=== PATIENT | male | born 1995 | race Asian ===

== ENCOUNTER 2018-12-15 12:22 | Observation (INO) | payer MEDICAID, OTHER ==
[~2018-12-15] VITALS: Ht 170.2 cm; Wt 55.0 kg
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
--- NOTE | 2018-12-15 13:18 | NUR ---
DIET TRAY ORDERED.
[2018-12-15 13:19] LABS: BASOPHILS # (AUTO) 0.02 x10^3/uL (0-0.1); BASOPHILS % (AUTO) 0 % (0-1); EOSINOPHILS # (AUTO) 0.08 x10^3/uL (0-0.4); EOSINOPHILS % (AUTO) 1 % (1-7); LYMPHOCYTES # (AUTO) 2.24 x10^3/uL (1-3.4); LYMPHOCYTES % (AUTO) 33 % (22-44); MD NO; MEAN CORPUSCULAR HEMOGLOBIN 30.2 pg (27.5-34.5); MEAN CORPUSCULAR HGB CONC 34.5 g/dL (33.2-36.2); MEAN CORPUSCULAR VOLUME 87.6 fL (81-97); MEAN PLATELET VOLUME 7.7 fL (7.4-10.4); MONOCYTES # (AUTO) 0.52 x10^3/uL (0.2-0.8); MONOCYTES % (AUTO) 8 % (2-9); NEUTROPHILS # (AUTO) 3.87 x10^3/uL (1.8-6.8); NEUTROPHILS % (AUTO) 58 % (42-75); PLATELET COUNT 266 x10^3/uL (130-400); RED BLOOD COUNT 5.39 x10^6/uL (4.38-5.82); RED CELL DISTRIBUTION WIDTH 12.8 % (9.4-14.8)
[2018-12-15 13:27] LABS: ALANINE AMINOTRANSFERASE 18 U/L (12-78); ALBUMIN 4.6 g/dL (3.4-5.0); ANION GAP 6 mmol/L (5-15); CALCIUM 9.4 mg/dL (8.5-10.1); CHLORIDE 107 mmol/L (98-107); SALICYLATE LEVEL 2.6 mg/dL (2.8-20.0)
[2018-12-15 13:31] LABS: ALKALINE PHOSPHATASE 91 U/L (45-117); BILIRUBIN,TOTAL 0.8 mg/dL (0.2-1.0); CREATININE 1.17 mg/dL (0.7-1.3); TOTAL PROTEIN 7.9 g/dL (6.4-8.2)
--- NOTE | 2018-12-15 13:32 | NUR ---
PT MOTHER DUY DAVIDSON [phone]
[2018-12-15 13:38] LABS: ACETAMINOPHEN < 2 mcg/mL (10-30)
[2018-12-15] MEDS ORDERED: HALOPERIDOL 5 MG/ML ONE (13:54)
--- NOTE | 2018-12-15 13:57 | NUR ---
PT AGREED TO HALDOL 5MG IM. PT GIVEN HALDOL 5MG IM PER MD ORDER
--- NOTE | 2018-12-15 14:08 | NUR ---
PT GIVEN SUICIDAL DIET TRAY.
[2018-12-15] MEDS ORDERED: HALOPERIDOL 5 MG/ML IM PRN (14:40)
--- NOTE | 2018-12-15 15:13 | NUR ---
PT SLEEPING AT THIS TIME.
[2018-12-15] MEDS ORDERED: HALOPERIDOL 2 MG/ML ORAL SOL PO SCH (16:00)
--- NOTE | 2018-12-15 16:08 | NUR ---
PT SLEEPING AT THIS TIME. ROOM SECURED AND SITTER OUTSIDE ROOM
--- NOTE | 2018-12-15 16:31 | NUR ---
admitting hospitalist at bedside. pt then woke up and screamed at hospitalist. pt refusing to talk to hospitalist.
[2018-12-15] MEDS ORDERED: LORazepam INTENSOL 2 MG/ML PO PRN (17:00)
[2018-12-15] MEDS ORDERED: POLYETHYLENE GLYCOL 17 GM PACKET PO PRN (17:00)
[2018-12-15] MEDS ORDERED: HALOPERIDOL 2 MG/ML ORAL SOL PO PRN (17:00)
[2018-12-15 17:23] LABS: FREE T4 (FREE THYROXINE) 1.51 ng/dL (0.76-1.46); THYROID STIMULATING HORMONE 1.09 mIU/L (0.358-3.740)
--- NOTE | 2018-12-15 18:12 | NUR ---
PT IN BED AND SLEEPING AT THIS TIME. MEAL TRAY AT BEDSIDE
--- NOTE | 2018-12-15 19:05 | NUR ---
REPORT GIVEN TO JOSE OLMEDO. PT STILL SLEEPING SITTER OUTSIDE ROOM
--- NOTE | 2018-12-15 19:41 | NUR ---
LATE ENTRY 0- PT RESTING ON RAFAEL HERNANDEZ, EQUAL CHEST RISE/FALL OBSERVED, ROOM SECURED, GARAGE DOORS DOWN, SITTER AT DOORWAY FOR CONTINOUS MONITORING.
--- NOTE | 2018-12-15 20:14 | NUR ---
PT RESTING CALMLY WITH EYES CLOSED, NAD, EQUAL CHEST RISE/FALL OBSERVED,REPOSITIONED SELF ON GURNEY, SITTER AT DOORWAY FOR CONTINOUS MONITORING.
--- NOTE | 2018-12-15 21:09 | NUR ---
PT RESTING CALMLY WITH EYES CLOSED, NAD, EQUAL CHEST RISE/FALLOBSERVED, SITTER AT DOORWAY FOR CONTINOUS MONITORING.
--- NOTE | 2018-12-15 21:47 | NUR ---
PT RESTING ON GURNEY, PT AGREED TO LET ME TAKE HIS VS, STATED HE IS NOT ABLE TO PROVIDED URINE SAMPLE AT THIS TIME, REQUESTING SOMETHING TO EAT.
--- NOTE | 2018-12-15 22:24 | NUR ---
PT REFUSED SNACK AT THIS TIME, STATED HE WILL WAIT FOR SANDWICH WHEN COFFEE CART REOPENS. PT RESTING CALMLY, DISCUSSED NEED FOR URINE SAMPLE, PT STATED " I DON'T HAVE TO GO YET". SITTER AT DOOORWAY FOR CONTINOUS MONITORING.
--- NOTE | 2018-12-15 23:36 | NUR ---
PT RESTING CALMLY WITH EYES CLOSED, NAD, EQUAL CHEST RISE/FALLOBSERVED, SITTER AT DOORWAY FOR CONTINOUS MONITORING.
--- NOTE | 2018-12-16 00:06 | NUR ---
PT RESTING CALMLY WITH EYES CLOSED, NAD, EQUAL CHEST RISE/FALL OBSERVED, SITTER AT DOORWAY FOR CONTINOUS MONITORING.
--- NOTE | 2018-12-16 01:09 | NUR ---
PROVIDED PT WITH SANDWICH AND DRINK, SI PRECAUTIONS MAINTAINED Addendum: 12/16/18 at 0109 by NASIR EMMANUEL REMAINS AT DOORWAY FOR MONITORING.
--- NOTE | 2018-12-16 01:29 | NUR ---
JUANITO RN: PT RESTING IN ROOM. REGULAR RESP. NO ACUTE DISTRESS NOTED. SITTER AT DOOR. WILL CONITNUE TO MONITOR.
--- NOTE | 2018-12-16 02:15 | NUR ---
PT RESTING CALMLY WITH EYES CLOSED, NAD, EQUAL CHEST RISE/FALL OBSERVED, SITTER AT DOORWAY FOR CONTINOUS MONITORING.
[2018-12-16 02:22] LABS: AMPHETAMINE SCREEN, URINE Positive (Negative); BARBITURATE SCREEN, URINE Negative (Negative); BENZODIAZEPINE SCREEN, URINE Negative (Negative); CANNABINOID SCREEN, URINE Positive (Negative); COCAINE SCREEN, URINE Negative (Negative); METHADONE SCREEN, URINE Negative (Negative); OPIATE SCREEN, URINE Negative (Negative)
--- NOTE | 2018-12-16 03:05 | NUR ---
PT RESTING CALMLY WITH EYES CLOSED, NAD, EQUAL CHEST RISE/FALL OBSERVED,REPOSITIONED SELF ON GURNEY, SITTER AT DOORWAY FOR CONTINOUS MONITORING.
--- NOTE | 2018-12-16 03:28 | NUR ---
LIO RN: PT IS SELF PAY. PACKET FAXED TO [facility]
--- NOTE | 2018-12-16 04:26 | NUR ---
PT RESTING CALMLY WITH EYES CLOSED, NAD, EQUAL CHEST RISE/FALL OBSERVED, SITTER AT DOORWAY FOR CONTINOUS MONITORING.
--- NOTE | 2018-12-16 05:09 | NUR ---
PT RESTING CALMLY WITH EYES CLOSED, NAD, EQUAL CHEST RISE/FALL OBSERVED, SITTER AT DOORWAY FOR CONTINOUS MONITORING.
[2018-12-16 05:36] LABS: BASOPHILS # (AUTO) 0.03 x10^3/uL (0-0.1); BASOPHILS % (AUTO) 1 % (0-1); EOSINOPHILS # (AUTO) 0.09 x10^3/uL (0-0.4); EOSINOPHILS % (AUTO) 2 % (1-7); LYMPHOCYTES # (AUTO) 2.13 x10^3/uL (1-3.4); LYMPHOCYTES % (AUTO) 41 % (22-44); MD NO; MEAN CORPUSCULAR HGB CONC 34.1 g/dL (33.2-36.2); MEAN CORPUSCULAR VOLUME 87.9 fL (81-97); MONOCYTES # (AUTO) 0.52 x10^3/uL (0.2-0.8); MONOCYTES % (AUTO) 10 % (2-9); NEUTROPHILS # (AUTO) 2.48 x10^3/uL (1.8-6.8); NEUTROPHILS % (AUTO) 47 % (42-75); PLATELET COUNT 249 x10^3/uL (130-400); RED BLOOD COUNT 5.35 x10^6/uL (4.38-5.82); RED CELL DISTRIBUTION WIDTH 12.5 % (9.4-14.8)
[2018-12-16 05:46] LABS: ANION GAP 5 mmol/L (5-15); CALCIUM 9.1 mg/dL (8.5-10.1); CHLORIDE 111 mmol/L (98-107); CREATININE 1.08 mg/dL (0.7-1.3)
--- NOTE | 2018-12-16 06:02 | NUR ---
PT RESTING CALMLY, DENIES NEEDS, ROOM REMAINS SECURED, SITTER AT DOORWAY FOR CONTINOUS MONITORING.
--- NOTE | 2018-12-16 07:04 | NUR ---
REPORT GIVEN TO HONORIO CRAIG
--- NOTE | 2018-12-16 07:39 | NUR ---
BEDSIDE REPORT FROM JOSE OLMEDO, PT SLEEPING IN [facility] WITH SITTER AT BEDSIDE. PAPERWORK FAXED TO [facility] THIS AM, AWAITING PLACEMENT.
--- NOTE | 2018-12-16 08:07 | NUR ---
NEIL OLMEDO FROM [facility] HERE FOR PT EVAL, STATES THEY WILL ACCEPT PT ON 2N IF HOSPITALIST AGREES
[2018-12-16] MEDS: SENNA/DOCUSATE TABLET PO SCH (09:00)
[2018-12-16 09:55] VITALS: BP 93/58
[2018-12-16 21:55] VITALS: BP 134/100
[2018-12-16] MEDS ORDERED: HALOPERIDOL 5 MG TABLET PO SCH (22:00)
[2018-12-16] MEDS: HALOPERIDOL 5 MG TABLET PO PRN (22:11)
[2018-12-16] MEDS ORDERED: LORazepam 0.5MG TABLET PO PRN (22:30)
[2018-12-17] MEDS: HALOPERIDOL 5 MG TABLET PO PRN (05:05)
[2018-12-17 07:50] VITALS: BP 110/76
[2018-12-17] MEDS: SENNA/DOCUSATE TABLET PO SCH (09:00)
[2018-12-17] MEDS: PALIPERIDONE 3 MG TAB.ER.24 PO SCH (12:39)
[2018-12-17 21:14] VITALS: BP_SYST 120; BP_SYST 98; BP_DIAS 64; BP_DIAS 72
[2018-12-18 08:00] VITALS: BP 115/71
[2018-12-18] MEDS: PALIPERIDONE 3 MG TAB.ER.24 PO SCH (08:16)
[2018-12-18] MEDS: SENNA/DOCUSATE TABLET PO SCH ×2 (08:16→08:19)
[2018-12-18 20:00] VITALS: BP 115/70
[2018-12-19] MEDS: HALOPERIDOL 5 MG TABLET PO PRN (02:17)
[2018-12-19 08:00] VITALS: BP 114/68
[2018-12-19] MEDS: PALIPERIDONE 3 MG TAB.ER.24 PO SCH (08:16)
[2018-12-19] MEDS: SENNA/DOCUSATE TABLET PO SCH (08:16)
[2018-12-19 20:42] VITALS: BP 110/71
[2018-12-20] MEDS: LORazepam 0.5MG TABLET PO PRN ×2 (04:01→23:08)
[2018-12-20 07:10] VITALS: BP 116/69
[2018-12-20] MEDS: PALIPERIDONE 3 MG TAB.ER.24 PO SCH (08:03)
[2018-12-20] MEDS: SENNA/DOCUSATE TABLET PO SCH (08:03)
[2018-12-20 21:57] VITALS: BP 114/70
[2018-12-21 07:43] VITALS: BP 121/78
[2018-12-21] MEDS: SENNA/DOCUSATE TABLET PO SCH (09:12)
[2018-12-21] MEDS: PALIPERIDONE 3 MG TAB.ER.24 PO SCH (09:12)
[2018-12-21] MEDS ORDERED: PALI3TAB11 PO (14:10)
== END 2018-12-21 14:38 ==
LOC: ED 13:34 → EDIP 15:53 → 2N 12-16 09:45
PROVIDERS: ADMIT Internal Medicine; ATTEND Internal Medicine
DX: F23 Brief psychotic disorder (principal); F15.10 Other stimulant abuse, uncomplicated; R45.851 Suicidal ideations; F41.9 Anxiety disorder, unspecified; F32.9 Major depressive disorder, single episode, unspecified; E66.9 Obesity, unspecified; Z91.19 Patient's noncompliance with other medical treatment and regimen
CPT/HCPCS: 36415; 80048; 80053; 80307; 80329; 84439; 84443; 85025; 93005; 96372; 99284; G0378; J1630; G0480

== ENCOUNTER 2019-04-18 15:55 | Emergency (ER) | payer MEDICAID ==
[~2019-04-18] VITALS: Ht 170.2 cm; Wt 59.1 kg
[~2019-04-18 15:55] MED LIST: PALI3TAB11 PO
[2019-04-18] MEDS ORDERED: HYDROcodone/APAP 5/325 TABLET PO ONE (16:30)
[2019-04-18] MEDS ORDERED: HYDROcodone/APAP 5/325 TABLET ONE (16:41)
--- NOTE | 2019-04-18 17:02 | NUR ---
pt resting in gurney with whh sitter at bedside, equal chest rise and fall. no needs at this time
[2019-04-18 17:06] VITALS: BP 142/98
--- NOTE | 2019-04-18 18:19 | NUR ---
Patient/Caregiver given discharge instructions and they have confirmed that they understand the instructions. Patient ambulatory with steady gait. Pt D/C with [facility] employee back to [facility] via taxi.
== END 2019-04-18 18:21 ==
LOC: ED 17:41
DX: S06.0X9A Concussion with loss of consciousness of unspecified duration, initial encounter (principal); S00.93XA Contusion of unspecified part of head, initial encounter; F17.200 Nicotine dependence, unspecified, uncomplicated; X58.XXXA Exposure to other specified factors, initial encounter; Y93.89 Activity, other specified; Y92.89 Other specified places as the place of occurrence of the external cause; Y99.8 Other external cause status
CPT/HCPCS: 70450; 99285

== ENCOUNTER 2019-06-28 04:55 | Emergency (ER) | payer OTHER, MEDICAID ==
[~2019-06-28] VITALS: Ht 172.7 cm; Wt 57.4 kg
[2019-06-28 05:00] VITALS: BP 113/82
[2019-06-28] MEDS ORDERED: HALOPERIDOL 5 MG TABLET ONE (05:26)
[2019-06-28] MEDS ORDERED: HALOPERIDOL 5 MG TABLET PO ONE (05:30)
--- NOTE | 2019-06-28 06:53 | NUR ---
RECEIVED REPORT FROM OSCAR OLMEDO, PLAN OF CARE DISCUSSED. ORDERED BREAKFAST. PT SLEEPING RESP EVEN AND UNLABORED
--- NOTE | 2019-06-28 07:48 | NUR ---
WOKE PT UP AND AMBULATED IN ROOM AND INTO HALLWAY. PT AMBULATED WITHOUT ASSISTANCE AND STEADY GAIT.
--- NOTE | 2019-06-28 08:27 | NUR ---
PT ATE 100% BREAKFAST Patient given discharge instructions and they have confirmed that they understand the instructions. Patient ambulatory with steady gait.
== END 2019-06-28 08:30 | disposition home or self-care (01) ==
LOC: ED 05:15
DX: F20.0 Paranoid schizophrenia (principal); F15.10 Other stimulant abuse, uncomplicated; Z72.9 Problem related to lifestyle, unspecified
CPT/HCPCS: 36415; 80047; 99284

== ENCOUNTER 2019-08-21 12:12 | Emergency (ER) | payer BC, MEDICAID ==
[~2019-08-21] VITALS: Ht 167.6 cm; Wt 54.5 kg
[2019-08-21 12:28] VITALS: BP 123/79
--- NOTE | 2019-08-21 13:16 | NUR ---
PT TO ED STATING "I'M REALLY DEPRESSED, I HEAR VOICES AND THEY TELL ME BAD THINGS LIKE I'M NOT GOING TO BE HERE ANYMORE, I CAN'T DO ANYTHING OR THINK, I NEED HELP". PT STATES HE DOES NOT HAVE ANY SI/HI AT THIS TIME HOWEVER HAS IN THE PAST AND THE VOICES ARE TELLING HIM HE IS GOING TO . PT STATES LAST METH USE YESTERDAY. HX PARANOID SCHIZOPHRENIA.
--- NOTE | 2019-08-21 13:27 | NUR ---
PT REQUESTING TO LEAVE. MD NOTIFIED. PER PT IS NOT ON LEGAL HOLD IS DENYING ANY THOUGHT OF SI/HI CURRENTLY. MD OFFERED PT MEDICATIONS BUT PT DECLINING AT THIS TIME. OK TO LEAVE PER .
== END 2019-08-21 13:34 | disposition other institution (70) ==
LOC: ED 13:05
DX: F32.9 Major depressive disorder, single episode, unspecified (principal); F20.9 Schizophrenia, unspecified
CPT/HCPCS: 99284

== ENCOUNTER 2020-01-05 15:27 | Emergency (ER) | payer BC, MEDICAID ==
[~2020-01-05] VITALS: Ht 172.7 cm; Wt 63.3 kg
[2020-01-05 15:36] VITALS: BP 128/88
[2020-01-05 16:38] LABS: BASOPHILS # (AUTO) 0.04 x10^3/uL (0-0.1); BASOPHILS % (AUTO) 0 % (0-1); EOSINOPHILS # (AUTO) 0.11 x10^3/uL (0-0.4); EOSINOPHILS % (AUTO) 1 % (1-7); LYMPHOCYTES # (AUTO) 2.01 x10^3/uL (1-3.4); LYMPHOCYTES % (AUTO) 22 % (22-44); MD NO; MEAN CORPUSCULAR HEMOGLOBIN 28.7 pg (27.5-34.5); MEAN CORPUSCULAR HGB CONC 32.9 g/dL (33.2-36.2); MEAN PLATELET VOLUME 7.6 fL (7.4-10.4); MONOCYTES # (AUTO) 0.67 x10^3/uL (0.2-0.8); MONOCYTES % (AUTO) 7 % (2-9); NEUTROPHILS % (AUTO) 69 % (42-75); PLATELET COUNT 299 x10^3/uL (130-400); RED BLOOD COUNT 5.38 x10^6/uL (4.38-5.82); RED CELL DISTRIBUTION WIDTH 12.9 % (9.4-14.8)
--- NOTE | 2020-01-05 16:45 | NUR ---
URINE SAMPLE WALKED TO LAB
[2020-01-05 16:50] LABS: ALBUMIN 3.6 g/dL (3.4-5.0); ANION GAP 5 mmol/L (5-15); CHLORIDE 111 mmol/L (98-107)
[2020-01-05 16:52] LABS: SALICYLATE LEVEL < 1.7 mg/dL (2.8-20.0)
[2020-01-05 16:55] LABS: CREATININE 0.99 mg/dL (0.7-1.3)
--- NOTE | 2020-01-05 17:05 | NUR ---
HOTEL GENERAL MANAGER PAGED
[2020-01-05 18:03] LABS: AMPHETAMINE SCREEN, URINE Negative (Negative); BARBITURATE SCREEN, URINE Negative (Negative); BENZODIAZEPINE SCREEN, URINE Negative (Negative); CANNABINOID SCREEN, URINE Positive (Negative); COCAINE SCREEN, URINE Negative (Negative); METHADONE SCREEN, URINE Negative (Negative); OPIATE SCREEN, URINE Negative (Negative)
--- NOTE | 2020-01-05 18:24 | NUR ---
GOLD CROSS AT BEDSIDE
== END 2020-01-05 19:28 | disposition home or self-care (01) ==
LOC: ED 19:20
DX: F32.9 Major depressive disorder, single episode, unspecified (principal); R45.851 Suicidal ideations
CPT/HCPCS: 36415; 80048; 80307; 82040; 85025; 99283; 99284

== ENCOUNTER 2020-01-18 19:20 | Emergency (ER) | payer BC, MEDICAID ==
[~2020-01-18] VITALS: Ht 172.7 cm; Wt 62.6 kg
[2020-01-18 20:25] LABS: BASOPHILS # (AUTO) 0.01 x10^3/uL (0-0.1); BASOPHILS % (AUTO) 0 % (0-1); EOSINOPHILS # (AUTO) 0.15 x10^3/uL (0-0.4); EOSINOPHILS % (AUTO) 2 % (1-7); LYMPHOCYTES # (AUTO) 3.19 x10^3/uL (1-3.4); LYMPHOCYTES % (AUTO) 40 % (22-44); MD NO; MEAN CORPUSCULAR HEMOGLOBIN 28.1 pg (27.5-34.5); MEAN CORPUSCULAR HGB CONC 32.7 g/dL (33.2-36.2); MEAN CORPUSCULAR VOLUME 85.9 fL (81-97); MEAN PLATELET VOLUME 7.8 fL (7.4-10.4); MONOCYTES # (AUTO) 0.52 x10^3/uL (0.2-0.8); MONOCYTES % (AUTO) 7 % (2-9); NEUTROPHILS # (AUTO) 4.05 x10^3/uL (1.8-6.8); NEUTROPHILS % (AUTO) 51 % (42-75); PLATELET COUNT 310 x10^3/uL (130-400); RED BLOOD COUNT 5.68 x10^6/uL (4.38-5.82); RED CELL DISTRIBUTION WIDTH 13.1 % (9.4-14.8)
--- NOTE | 2020-01-18 20:29 | NUR ---
Patient into room, reports having suicidal ideation, patient reports general plan of jumping off bridge but does not name specific places. Patient reports 10/10 back pain but falls asleep with ease. Patient is easily arousable, not intoxicated on alcohol per breathalyzer. Patient exhibiting no signs or symptoms of physical or psychological distress, patient is now sleeping comfortably, only asks for food. Emotionally stable, no tears, no anxious verbalizations.
[2020-01-18 20:31] LABS: ALANINE AMINOTRANSFERASE 26 U/L (12-78); ALBUMIN 4.1 g/dL (3.4-5.0); ANION GAP 4 mmol/L (5-15); CALCIUM 9.3 mg/dL (8.5-10.1); CHLORIDE 107 mmol/L (98-107); CREATININE 1.01 mg/dL (0.7-1.3); SALICYLATE LEVEL < 1.7 mg/dL (2.8-20.0)
--- NOTE | 2020-01-18 20:40 | NUR ---
Patient continues to sleep and no signs or symptoms of psychological distress.
--- NOTE | 2020-01-18 20:40 | NUR ---
Single bag, with jacket (with uncategorized belongings in pockets) pants, shirt in locker.
[2020-01-18 20:42] LABS: ALKALINE PHOSPHATASE 118 U/L (45-117); BILIRUBIN,TOTAL 0.3 mg/dL (0.2-1.0); TOTAL PROTEIN 8.2 g/dL (6.4-8.2)
--- NOTE | 2020-01-18 22:23 | NUR ---
Patient remains sleeping.
--- NOTE | 2020-01-19 00:20 | NUR ---
PT REMAINS SLEEPING. NAD. SITTER IN PLACE.
--- NOTE | 2020-01-19 00:58 | NUR ---
Patient remains sleeping, RN awoke patient, easily arousable. Ignores RN's request for urine sample. Patient declines further needs.
--- NOTE | 2020-01-19 03:09 | NUR ---
Patient remains sleeping, no signs or symptoms of distress. Sitter in hallway able to visualize patient. Awaiting psychiatric assessment.
--- NOTE | 2020-01-19 07:05 | NUR ---
Bedside report received from Mendoza OLMEDO, pt care transferred at this time.
--- NOTE | 2020-01-19 07:28 | NUR ---
Pt resting in gurney, eyes closed, even and unlabored breathing, NAD. Sitter in [place] monitoring. WCTM.
[2020-01-19 07:56] VITALS: BP 116/71
--- NOTE | 2020-01-19 08:14 | NUR ---
Late Entry: pt given SI breakfast tray, [facility] in [facility], NAD, denies additional needs at this time. WCTM. Pt given additional warm blanket and pillow for comfort.
[2020-01-19 08:31] LABS: MICROSCOPIC NOT IND
[2020-01-19 08:39] LABS: CULTURE INDICATED? NO
[2020-01-19 08:43] LABS: AMPHETAMINE SCREEN, URINE Positive (Negative); BARBITURATE SCREEN, URINE Negative (Negative); BENZODIAZEPINE SCREEN, URINE Negative (Negative); CANNABINOID SCREEN, URINE Positive (Negative); COCAINE SCREEN, URINE Negative (Negative); METHADONE SCREEN, URINE Negative (Negative); OPIATE SCREEN, URINE Negative (Negative)
--- NOTE | 2020-01-19 09:25 | NUR ---
LATE ENTRY: Pt resting in gurney, NAD, denies additional needs at this time, even and unlabored respirations, WCTM.
--- NOTE | 2020-01-19 09:48 | NUR ---
Don figueredo in [facility] - 01/19/20 at 0948 by LEXIE LATE ENTRY: Pt resting in [facility], denies additional needs at this time, even and unlabored respirations, WCTM.
--- NOTE | 2020-01-19 10:19 | NUR ---
pt resting on gurney, eyes closed, even and unlabored respirations, NAD, WCTM. Sitter outside in [place].
--- NOTE | 2020-01-19 11:20 | NUR ---
Late Entry: Pt laying in gurney with blankets, NAD, even and unlabored respirations, WCTM.
--- NOTE | 2020-01-19 12:24 | NUR ---
Pt resting in gurney on side, eyes closed, even and unlabored respirations, NAD, WCTM.
--- NOTE | 2020-01-19 13:08 | NUR ---
Pt in [facility], given lunch meal tray, NAD, denies additional needs, WCTM.
--- NOTE | 2020-01-19 14:32 | NUR ---
Pt being transferred up to U, by marixa and RN. Pt NAD, denies additional needs, even and unlabored respirations.
[2020-01-19] MEDS ORDERED: MIRT15TA94 PO (16:28)
[2020-01-19] MEDS ORDERED: ALPR0.5T6 PO (16:28)
[2020-01-19] MEDS ORDERED: MIRT-34 PO (16:30)
[2020-01-19] MEDS ORDERED: OLAN10TA9 PO (16:32)
[2020-01-19] MEDS ORDERED: HYDR50CA PO (16:34)
[2020-01-19] MEDS ORDERED: QUET100T PO (16:34)
== END 2020-01-19 14:51 | disposition other institution (70) ==
LOC: ED 22:32
DX: R45.851 Suicidal ideations (principal); F33.9 Major depressive disorder, recurrent, unspecified; F20.9 Schizophrenia, unspecified; F17.200 Nicotine dependence, unspecified, uncomplicated
CPT/HCPCS: 36415; 80053; 80307; 81003; 84443; 85025; 99284

== ENCOUNTER 2020-01-19 14:19 | Inpatient (IN) | payer BC, MEDICAID ==
[~2020-01-19] VITALS: Ht 172.7 cm; Wt 60.3 kg
[2020-01-19] MEDS ORDERED: PLEASE ENTER HEIGHT AND WEIGHT MC SCH (15:00)
[2020-01-19] MEDS ORDERED: POLYETHYLENE GLYCOL 17 GM PACKET PO PRN (15:00)
[2020-01-19] MEDS ORDERED: DOCUSATE 100 MG CAPSULE PO PRN (15:00)
[2020-01-19] MEDS ORDERED: BISACODYL 10 MG SUPP PR PRN (15:00)
[2020-01-19 15:47] VITALS: BP 112/75
[2020-01-19] MEDS ORDERED: ONDANSETRON ODT 4 MG PO PRN (16:00)
[2020-01-19] MEDS ORDERED: ACETAMINOPHEN 325 MG TABLET PO PRN (16:00)
[2020-01-19] MEDS ORDERED: ALPR0.5T6 PO (16:28)
[2020-01-19] MEDS ORDERED: MIRT15TA94 PO (16:28)
[2020-01-19] MEDS ORDERED: MIRT-34 PO (16:30)
[2020-01-19] MEDS ORDERED: OLAN10TA9 PO (16:32)
[2020-01-19] MEDS ORDERED: HYDR50CA PO (16:34)
[2020-01-19] MEDS ORDERED: QUET100T PO (16:34)
[2020-01-19] MEDS ORDERED: hydrOXyzine 50MG TABLET PO PRN (17:00)
[2020-01-19] MEDS: NICOTINE 14MG/24 HR PATCH.TD24 TD SCH (17:21)
[2020-01-19] MEDS ORDERED: HALOPERIDOL 5 MG TABLET ONE (18:46)
[2020-01-19] MEDS ORDERED: LORazepam 1MG TABLET ONE (18:47)
[2020-01-19] MEDS ORDERED: HALOPERIDOL 5 MG TABLET PO ONE (19:00)
[2020-01-19] MEDS ORDERED: LORazepam 1MG TABLET PO ONE (19:00)
[2020-01-19 20:00] VITALS: BP 127/83
[2020-01-19] MEDS: OLANZAPINE 5 MG TABLET PO SCH (20:03)
[2020-01-20 07:20] VITALS: BP 92/59
[2020-01-20] MEDS: OLANZAPINE 5 MG TABLET PO SCH ×2 (08:31→20:16)
[2020-01-20 09:37] LABS: CHOL/HDL RATIO 2.9; FREE T4 (FREE THYROXINE) 0.98 ng/dL (0.76-1.46); LDL/HDL RATIO 1.6 (0.5-3.0)
[2020-01-20] MEDS: NICOTINE 14MG/24 HR PATCH.TD24 TD SCH (17:14)
[2020-01-20 19:15] VITALS: BP 107/66
[2020-01-21 06:14] VITALS: BP 126/78
[2020-01-21] MEDS: NICOTINE 14MG/24 HR PATCH.TD24 TD SCH (17:30)
[2020-01-21 19:52] VITALS: BP 136/95
[2020-01-21] MEDS: OLANZAPINE 5 MG TABLET PO SCH (20:01)
[2020-01-22 07:23] VITALS: BP 98/65
[2020-01-22] MEDS: NICOTINE 14MG/24 HR PATCH.TD24 TD SCH (16:34)
[2020-01-22 19:15] VITALS: BP 122/81
[2020-01-22] MEDS: OLANZAPINE 5 MG TABLET PO SCH (19:58)
[2020-01-23 07:28] VITALS: BP 106/64
[2020-01-23] MEDS: NICOTINE 14MG/24 HR PATCH.TD24 TD SCH (16:35)
[2020-01-23] MEDS ORDERED: NICOTINE GUM 2 MG BC ONE (16:42)
[2020-01-23] MEDS ORDERED: NICOTINE GUM 2 MG BC PRN (17:00)
[2020-01-23 19:19] VITALS: BP 131/85
[2020-01-23] MEDS ORDERED: LORazepam 2 MG/ML, 1ML ONE (19:44)
[2020-01-23] MEDS ORDERED: HALOPERIDOL 5 MG/ML ONE (19:44)
[2020-01-23] MEDS ORDERED: HALOPERIDOL 5 MG/ML IM PRN (20:00)
[2020-01-23] MEDS ORDERED: LORazepam 2 MG/ML, 1ML IM PRN (20:00)
[2020-01-23] MEDS: OLANZAPINE 5 MG TABLET PO SCH (20:01)
[2020-01-24 07:00] VITALS: BP 115/72
[2020-01-24] MEDS ORDERED: ALPR0.5T6 PO (13:59)
[2020-01-24] MEDS ORDERED: OLAN5TAB9 PO (13:59)
== END 2020-01-24 14:12 | disposition home or self-care (01) | DRG 885 ==
LOC: UNDOADMIN 14:38 → 3E 14:38 → 2N 14:52 → UNDOADMIN 01-23 21:50 → UNDODISIN 01-24 14:12
PROVIDERS: ADMIT Psychiatry & Neurology Psychosomatic Medicine; ATTEND Psychiatry & Neurology Psychosomatic Medicine
DX: F20.9 Schizophrenia, unspecified (principal); R45.851 Suicidal ideations; F15.20 Other stimulant dependence, uncomplicated; F12.10 Cannabis abuse, uncomplicated; F17.200 Nicotine dependence, unspecified, uncomplicated; F41.1 Generalized anxiety disorder
CPT/HCPCS: 36415; 71045; 80061; 84439; 84443; 93005; J1630; J2060

== ENCOUNTER 2020-01-29 10:25 | Emergency (ER) | payer BC, MEDICAID ==
[~2020-01-29] VITALS: Ht 175.3 cm; Wt 70.0 kg
[~2020-01-29 10:25] MED LIST changes: +ALPR0.5T6 PO; +HYDR50CA PO; +MIRT-34 PO; +MIRT15TA94 PO; +OLAN10TA9 PO; +OLAN5TAB9 PO; +QUET100T PO
--- NOTE | 2020-01-29 10:31 | NUR ---
PT BIB EMS FOR POSSIBLE OD ON XANAX. XANAX BOTTLE EMPTY. FILLED YESTERDAY 60 PILLS, BOTTLE EMPTY. PT IS NOT COOPERATIVE, SLURRED SPEECH, DROWSY. PT REQUESTING FOOD. MD AT BEDSIDE.
[2020-01-29 10:55] LABS: BASOPHILS # (AUTO) 0.02 x10^3/uL (0-0.1); BASOPHILS % (AUTO) 0 % (0-1); EOSINOPHILS # (AUTO) 0.12 x10^3/uL (0-0.4); EOSINOPHILS % (AUTO) 2 % (1-7); LYMPHOCYTES % (AUTO) 26 % (22-44); MD NO; MEAN CORPUSCULAR HGB CONC 32.7 g/dL (33.2-36.2); MEAN CORPUSCULAR VOLUME 85.5 fL (81-97); MEAN PLATELET VOLUME 7.6 fL (7.4-10.4); MONOCYTES # (AUTO) 0.69 x10^3/uL (0.2-0.8); MONOCYTES % (AUTO) 9 % (2-9); NEUTROPHILS # (AUTO) 5.05 x10^3/uL (1.8-6.8); NEUTROPHILS % (AUTO) 63 % (42-75); PLATELET COUNT 282 x10^3/uL (130-400); RED BLOOD COUNT 5.72 x10^6/uL (4.38-5.82); RED CELL DISTRIBUTION WIDTH 12.9 % (9.4-14.8)
[2020-01-29] MEDS ORDERED: PLEASE ENTER HEIGHT AND WEIGHT MC SCH (11:00)
[2020-01-29] MEDS ORDERED: SODIUM CHLORIDE FLUSH 10ML SYR IVF ONE (11:00)
[2020-01-29 11:07] LABS: ALANINE AMINOTRANSFERASE 72 U/L (12-78); ANION GAP 5 mmol/L (5-15); CALCIUM 9.3 mg/dL (8.5-10.1); CHLORIDE 105 mmol/L (98-107); CREATININE 1.05 mg/dL (0.7-1.3)
[2020-01-29 11:08] LABS: SALICYLATE LEVEL < 1.7 mg/dL (2.8-20.0)
[2020-01-29 11:09] LABS: ALKALINE PHOSPHATASE 116 U/L (45-117); BILIRUBIN,TOTAL 0.5 mg/dL (0.2-1.0); TOTAL PROTEIN 8.3 g/dL (6.4-8.2)
--- NOTE | 2020-01-29 11:42 | NUR ---
URINE SAMPLE COLLECTED, PT KEEPS YELLING OUT TO STAFF. DIET TRAY ORDERED.
[2020-01-29 11:59] LABS: AMPHETAMINE SCREEN, URINE Positive (Negative); BARBITURATE SCREEN, URINE Negative (Negative); BENZODIAZEPINE SCREEN, URINE Positive (Negative); CANNABINOID SCREEN, URINE Positive (Negative); COCAINE SCREEN, URINE Negative (Negative); METHADONE SCREEN, URINE Negative (Negative); OPIATE SCREEN, URINE Negative (Negative)
--- NOTE | 2020-01-29 14:29 | NUR ---
pt asleep in [facility] at this time;
[2020-01-29 15:35] VITALS: BP 116/68
--- NOTE | 2020-01-29 15:35 | NUR ---
PT VSS AND UPDATED IN EMR.
--- NOTE | 2020-01-29 15:55 | NUR ---
PT AWAKES AND IS AAO X 4. PT ORIENTED TO CIRCUMSTANCES OF ER VISIT AND VERBALIZES UNDERSTANDING. PT REQUESTING BUS PASS AND FOOD WHICH WERE PROVIDED. PT AMBULATES TO REGISTRATION DESK WITH A STEADY GAIT FOR D/C HOME. PT DENIES ANY OTHER NEEDS PERTAINING TO THIS VISIT. PT PROVIDED D/C SUMMARY. IV D/C WITH TIP INTACT.
== END 2020-01-29 16:10 | disposition home or self-care (01) ==
LOC: ED 15:59
DX: F13.129 Sedative, hypnotic or anxiolytic abuse with intoxication, unspecified (principal); F17.200 Nicotine dependence, unspecified, uncomplicated; R41.0 Disorientation, unspecified
CPT/HCPCS: 36415; 80053; 80307; 85025; 99283

== ENCOUNTER 2020-02-01 19:15 | Emergency (ER) | payer BC, MEDICAID ==
[~2020-02-01] VITALS: Ht 172.7 cm; Wt 63.2 kg
--- NOTE | 2020-02-01 20:08 | NUR ---
PATIENT TO ROOM 3, ROOM SECURED. PATIENT IN HOSPITAL GOWN, BELONGINGS BAGGED, TAGGED WITH PATIETN STICKER AND PLACED IN SECURE KEEPING.
--- NOTE | 2020-02-01 20:09 | NUR ---
BELLOWS FILLER TO ROOM
[2020-02-01 20:21] LABS: BASOPHILS # (AUTO) 0.02 x10^3/uL (0-0.1); BASOPHILS % (AUTO) 0 % (0-1); EOSINOPHILS # (AUTO) 0.13 x10^3/uL (0-0.4); EOSINOPHILS % (AUTO) 2 % (1-7); LYMPHOCYTES # (AUTO) 2.83 x10^3/uL (1-3.4); LYMPHOCYTES % (AUTO) 42 % (22-44); MD NO; MEAN CORPUSCULAR HEMOGLOBIN 28.5 pg (27.5-34.5); MEAN CORPUSCULAR VOLUME 86.2 fL (81-97); MEAN PLATELET VOLUME 7.8 fL (7.4-10.4); MONOCYTES # (AUTO) 0.46 x10^3/uL (0.2-0.8); MONOCYTES % (AUTO) 7 % (2-9); NEUTROPHILS % (AUTO) 49 % (42-75); PLATELET COUNT 291 x10^3/uL (130-400); RED BLOOD COUNT 5.44 x10^6/uL (4.38-5.82); RED CELL DISTRIBUTION WIDTH 12.8 % (9.4-14.8)
[2020-02-01] MEDS ORDERED: LORazepam 1MG TABLET ONE (20:28)
[2020-02-01 20:30] LABS: ALANINE AMINOTRANSFERASE 37 U/L (12-78); ALBUMIN 3.6 g/dL (3.4-5.0); ANION GAP 5 mmol/L (5-15); CALCIUM 8.9 mg/dL (8.5-10.1); CHLORIDE 110 mmol/L (98-107); SALICYLATE LEVEL < 1.7 mg/dL (2.8-20.0)
[2020-02-01] MEDS ORDERED: LORazepam 1MG TABLET PO ONE (20:30)
--- NOTE | 2020-02-01 20:31 | NUR ---
PT HERE FOR SI. PT SAYS HE HAS A PLAN TO JUMP OFF A GARAGE. PT HAS HX OF PARANOID SCHIZOPHENIA. DENIES ANY ATTEMPTS AT SUICIDE IN THE PAST, DENIES HI. SPEAKING IN FULL SENTENCES, DENIES MEDICAL HX, DENIES N/V/D, OR ANY RESP PROBLEMS. PATIENT MEDICATED PER EMAR, TOELRATED WELL. URINAL AT BEDSIDE. PATIENT EDUCATED ON NEED FOR URINE SAMPLE
[2020-02-01 20:32] LABS: ALKALINE PHOSPHATASE 113 U/L (45-117); BILIRUBIN,TOTAL 0.2 mg/dL (0.2-1.0); CREATININE 0.96 mg/dL (0.7-1.3); TOTAL PROTEIN 7.9 g/dL (6.4-8.2)
--- NOTE | 2020-02-01 20:58 | NUR ---
PATIENT SLEEPING, RESPIRATIONS EVEN AND UNLABORED. SITTER AT DOOR
--- NOTE | 2020-02-01 22:10 | NUR ---
TP RN: TELEPSYCH CONSULT INITIATED.
--- NOTE | 2020-02-01 22:25 | NUR ---
REPORT GIVEN TO TELEPSYCH
--- NOTE | 2020-02-01 22:55 | NUR ---
TELEPSYCH IN PROGRESS
--- NOTE | 2020-02-01 23:46 | NUR ---
TP RN: TALKED TO 2N. PER KIMMIE, UNABLE TO TAKE PT UNTIL AUTHORIZATION OF INSURANCE TOMORROW MORNING. HOLD IN ED AT THIS TIME.
--- NOTE | 2020-02-02 01:00 | NUR ---
Break RN: Pt sleeping with resp even and unlabored. Room secured with sitter in place.
--- NOTE | 2020-02-02 01:33 | NUR ---
report of pt from omar rosa and assuming care of pt at this time. pt asleep in [facility] at this time; bobby. sitter outside of pt room for direct observation of pt.
--- NOTE | 2020-02-02 02:58 | NUR ---
pt asleep in [facility] at this time; bobby. sitter outside of pt room for direct observation of pt.
--- NOTE | 2020-02-02 03:43 | NUR ---
Report received from HONORIO Yarbrough. This RN to assume care. Patient sleeping in [facility]. Respirations even and unlabored. Room secured; sitter outside. Belongings in cabinet.
--- NOTE | 2020-02-02 04:36 | NUR ---
Patient sleeping in [place]. Respirations even and unlabored. Room secured; sitter outside. Belongings in cabinet.
--- NOTE | 2020-02-02 05:51 | NUR ---
Patient sleeping in [place]. Respirations even and unlabored. Room secured; sitter outside. Belongings in cabinet.
--- NOTE | 2020-02-02 06:21 | NUR ---
Patient packet sent to [facility], [facility] and [facility].
--- NOTE | 2020-02-02 06:49 | NUR ---
Report to HONORIO Garrett.
--- NOTE | 2020-02-02 06:50 | NUR ---
Report from HONORIO Erazo.
--- NOTE | 2020-02-02 07:23 | NUR ---
Report to Christina at . Will report to doctor and call back if accpeting.
--- NOTE | 2020-02-02 08:12 | NUR ---
[facility] TO ACCPET PATIENT. INFORMATION GIVEN TO THROUGHPUT.
--- NOTE | 2020-02-02 08:33 | NUR ---
PATIENT GIVEN FOOD TRAY. PT TO BE TRANSFERED TO [facility] AROUND 1300.
[2020-02-02 08:40] VITALS: BP 120/82
--- NOTE | 2020-02-02 08:40 | NUR ---
THROUGHPUT: [facility] CALLED FOR TRANSPORT AT 1300 TODAY.
--- NOTE | 2020-02-02 09:55 | NUR ---
Report to HONORIO House.
--- NOTE | 2020-02-02 10:10 | NUR ---
REPORT FROM GERTRUDE OLMEDO. PT BEING OBSERVED BY SITTER. EQUAL RISE AND FALL OF CHEST OBSERVED.
--- NOTE | 2020-02-02 10:47 | NUR ---
URINE COLLECTED AND SENT TO THE LAB. PT GIVEN CRACKERS AND ORANGE JUICE PER PT REQUEST.
[2020-02-02 11:08] LABS: AMPHETAMINE SCREEN, URINE Positive (Negative); BARBITURATE SCREEN, URINE Negative (Negative); BENZODIAZEPINE SCREEN, URINE Negative (Negative); CANNABINOID SCREEN, URINE Positive (Negative); COCAINE SCREEN, URINE Negative (Negative); METHADONE SCREEN, URINE Negative (Negative); OPIATE SCREEN, URINE Negative (Negative)
--- NOTE | 2020-02-02 12:53 | NUR ---
PT GIVEN MEAL TRAY. [facility] HERE TO TRANSPORT PT.
== END 2020-02-02 13:12 ==
LOC: ED 20:33
DX: R45.851 Suicidal ideations (principal); F17.210 Nicotine dependence, cigarettes, uncomplicated; F20.9 Schizophrenia, unspecified; F10.10 Alcohol abuse, uncomplicated; F15.10 Other stimulant abuse, uncomplicated; Z72.9 Problem related to lifestyle, unspecified; Y90.0 Blood alcohol level of less than 20 mg/100 ml
CPT/HCPCS: 36415; 80053; 80307; 85025; 99285

== ENCOUNTER 2020-03-09 13:48 | Emergency (ER) | payer BC, MEDICAID ==
[~2020-03-09] VITALS: Ht 172.7 cm; Wt 59.0 kg
--- NOTE | 2020-03-09 14:26 | NUR ---
PT IN FOR CHIEF COMPLAINT OF HEADACHE FOR FEW DAYS, ALSO STATES FEELS SPLIT EMOTIONS. HX SCHIZOPHRENIA
--- NOTE | 2020-03-09 15:10 | NUR ---
DARSHAN CHILD AT BEDSIDE TO EVALUATE
[2020-03-09] MEDS ORDERED: ACETAMINOPHEN 500 MG TABLET ONE (15:28)
[2020-03-09 15:30] VITALS: BP 101/52
[2020-03-09] MEDS ORDERED: ACETAMINOPHEN 325 MG TABLET PO ONE (15:30)
--- NOTE | 2020-03-09 16:26 | NUR ---
DISCHARGE INSTRUCTIONS REVIEWED
== END 2020-03-09 16:35 | disposition home or self-care (01) ==
LOC: ED 16:22
DX: G44.219 Episodic tension-type headache, not intractable (principal); F17.200 Nicotine dependence, unspecified, uncomplicated; F20.89 Other schizophrenia
CPT/HCPCS: 99282

== ENCOUNTER 2020-03-10 15:15 | Emergency (ER) | payer BC, MEDICAID ==
[~2020-03-10] VITALS: Ht 172.7 cm; Wt 60.0 kg
[2020-03-10 15:16] VITALS: BP 132/81
[2020-03-10] MEDS ORDERED: ACETAMINOPHEN 500 MG TABLET PO ONE (15:30)
[2020-03-10] MEDS ORDERED: ACETAMINOPHEN 500 MG TABLET ONE (15:32)
--- NOTE | 2020-03-10 15:59 | NUR ---
Yudith, psych COPY EDITOR to room for eval
--- NOTE | 2020-03-10 16:53 | NUR ---
Pt to CT
--- NOTE | 2020-03-10 17:25 | NUR ---
Patient given discharge instructions and they have confirmed that they understand the instructions. Patient ambulatory with steady gait.
== END 2020-03-10 17:31 | disposition home or self-care (01) ==
LOC: ED 15:52
DX: G44.221 Chronic tension-type headache, intractable (principal); F20.89 Other schizophrenia; F17.200 Nicotine dependence, unspecified, uncomplicated; F32.9 Major depressive disorder, single episode, unspecified
CPT/HCPCS: 70450; 99284

== ENCOUNTER 2020-03-11 06:44 | Emergency (ER) | payer BC, MEDICAID ==
[~2020-03-11] VITALS: Ht 172.7 cm; Wt 59.2 kg
[2020-03-11 06:48] VITALS: BP 128/106
--- NOTE | 2020-03-11 07:03 | NUR ---
THIS IS A 24 YEAR OLD MALE WHO C/O RAMEY X5-6 DAYS. SUICIDAL THOUGHTS WITH AUDITORY HALLUCINATIONS. HX OF SCHIZOPHRENIA. OFF MEDICATION. EXPLAINED PLAN OF CARE. NEED FOR URINE, ORDERED MEAL. ROOM SECURED. BELONGINGS IN SAFE KEEPING. SITTER AT DOOR
--- NOTE | 2020-03-11 07:17 | NUR ---
SITTER REQUESTED FROM DISTRIBUTION ASSOCIATE.
[2020-03-11 07:30] LABS: BASOPHILS # (AUTO) 0.02 x10^3/uL (0-0.1); BASOPHILS % (AUTO) 0 % (0-1); EOSINOPHILS # (AUTO) 0.19 x10^3/uL (0-0.4); EOSINOPHILS % (AUTO) 3 % (1-7); LYMPHOCYTES # (AUTO) 2.34 x10^3/uL (1-3.4); LYMPHOCYTES % (AUTO) 39 % (22-44); MD NO; MEAN CORPUSCULAR HEMOGLOBIN 28.2 pg (27.5-34.5); MEAN CORPUSCULAR HGB CONC 32.9 g/dL (33.2-36.2); MEAN CORPUSCULAR VOLUME 85.6 fL (81-97); MONOCYTES # (AUTO) 0.31 x10^3/uL (0.2-0.8); MONOCYTES % (AUTO) 5 % (2-9); NEUTROPHILS # (AUTO) 3.16 x10^3/uL (1.8-6.8); NEUTROPHILS % (AUTO) 53 % (42-75); PLATELET COUNT 290 x10^3/uL (130-400); RED BLOOD COUNT 5.69 x10^6/uL (4.38-5.82)
[2020-03-11 07:42] LABS: ALBUMIN 3.9 g/dL (3.4-5.0); ANION GAP 3 mmol/L (5-15); CALCIUM 9.2 mg/dL (8.5-10.1); CHLORIDE 106 mmol/L (98-107)
[2020-03-11 07:44] LABS: SALICYLATE LEVEL < 1.7 mg/dL (2.8-20.0)
[2020-03-11 07:45] LABS: ALANINE AMINOTRANSFERASE 25 U/L (12-78); ALKALINE PHOSPHATASE 150 U/L (45-117); BILIRUBIN,TOTAL 0.3 mg/dL (0.2-1.0); CREATININE 1.07 mg/dL (0.7-1.3); TOTAL PROTEIN 7.9 g/dL (6.4-8.2)
--- NOTE | 2020-03-11 08:00 | NUR ---
PT ATE 100% BREAKFAST. ROOM SECURED. SITTER AT DOOR
--- NOTE | 2020-03-11 09:59 | NUR ---
PT SLEEPING, SITTER AT DOOR, ROOM REMAINS SECURED
[2020-03-11] MEDS ORDERED: OLANZAPINE 10 MG TABLET PO SCH (11:00)
[2020-03-11] MEDS ORDERED: OLANZAPINE 10 MG TABLET ONE (11:46)
--- NOTE | 2020-03-11 11:53 | NUR ---
LUNCH GIVEN, MEDICATED. SITTER AT BS. PT VERBALIZED NO NEEDS. REPORT TO MARISSA OLMEDO, PLAN OF CARE DISCUSSED
--- NOTE | 2020-03-11 12:02 | NUR ---
RECEIVED REPORT FROM TEDDY OLMEDO. ASSUMING CARE AT THIS TIME. PER LAB, NEED ANOTHER URINE SAMPLE. PT NOTIFIED OF NEED FOR ANOTHER URINE SAMPLE. PT ATE 100% OF LUNCH, SITTING ON GURNEY. NADN. ROOM SECURE. PT IN DIRECT SIGHT OF SITTER.
--- NOTE | 2020-03-11 13:00 | NUR ---
PT LAYING ON GURNEY. HALL. ROOM SECURE. PT IN DIRECT SIGHT OF SITTER.
--- NOTE | 2020-03-11 14:30 | NUR ---
PT LAYING ON GURNEY. HALL. ROOM SECURE. PT IN DIRECT SIGHT OF SITTER.
--- NOTE | 2020-03-11 15:07 | NUR ---
PT GIVEN WATER TO EXPIDITE URINE SAMPLE.
--- NOTE | 2020-03-11 15:24 | NUR ---
PT PROVIDED URINE SAMPLE. UA COLLECTED AND TAKEN TO LAB. PT RESTING ON DAVID. RAFAEL. PT IN DIRECT SIGHT OF EMMANUEL.
[2020-03-11 15:55] LABS: MICROSCOPIC NOT IND
[2020-03-11 16:08] LABS: AMPHETAMINE SCREEN, URINE Negative (Negative); BARBITURATE SCREEN, URINE Negative (Negative); BENZODIAZEPINE SCREEN, URINE Negative (Negative); CANNABINOID SCREEN, URINE Positive (Negative); COCAINE SCREEN, URINE Negative (Negative); METHADONE SCREEN, URINE Negative (Negative); OPIATE SCREEN, URINE Negative (Negative)
--- NOTE | 2020-03-11 17:18 | NUR ---
PACKET FAXED TO [facility], [facility] AND [facility]
--- NOTE | 2020-03-11 17:42 | NUR ---
DIET TRAY DELIVERED TO PT. PT SITTING ON [employer] EATING. NADN. PT IN DIRECT SIGHT OF SITTER.
--- NOTE | 2020-03-11 18:38 | NUR ---
REPORT GIVEN TO HONORIO ECKERT AT [facility]
--- NOTE | 2020-03-11 19:34 | NUR ---
[facility] HERE TO TAKE PT TO [facility]. PT AMBULATED TO AMBULANCE WITH STEADY GAIT. PT BELONGINGS GIVEN TO [facility].
== END 2020-03-11 19:39 ==
LOC: MERGE 08:59 → ED 08:59
DX: R45.851 Suicidal ideations (principal); F20.9 Schizophrenia, unspecified; F17.210 Nicotine dependence, cigarettes, uncomplicated; R44.0 Auditory hallucinations; R51 Headache
CPT/HCPCS: 36415; 80053; 80307; 81003; 85025; 99285; 99406

== ENCOUNTER 2020-03-22 18:01 | Emergency (ER) | payer MEDICAID ==
--- NOTE | 2020-03-22 18:10 | NUR ---
ASSISTED LIVING HOUSEKEEPER: NO ANSWERX1 TO TRIAGE. INSULATION POWER UNIT TENDER RASHAWN IN [facility] STATES "PT WENT OUT TO SMOKE CIGARETTE AND HAS NOT RETURNED."
--- NOTE | 2020-03-22 18:35 | NUR ---
SONNY OLMEDO. N/A X2 FROM LOBBY AT THIS TIME
--- NOTE | 2020-03-22 18:45 | NUR ---
NO ANSWER IN THE LOBBY AT THIS TIME.
== END 2020-03-22 18:48 | disposition left against medical advice (07) ==
LOC: ED 18:45
DX: R68.89 Other general symptoms and signs (principal); Z53.21 Procedure and treatment not carried out due to patient leaving prior to being seen by health care provider

== ENCOUNTER 2020-03-22 22:32 | Emergency (ER) | payer MEDICAID ==
[~2020-03-22] VITALS: Ht 172.7 cm; Wt 61.6 kg
[2020-03-22 22:35] VITALS: BP 120/80
--- NOTE | 2020-03-22 23:47 | NUR ---
PT STATES HE IS NOT ACUTLEY SUICIDAL, AND JUST WANTS A PRESCRIPTION FOR MED REFILL.
[2020-03-23 00:17] LABS: BASOPHILS # (AUTO) 0.04 x10^3/uL (0-0.1); BASOPHILS % (AUTO) 0 % (0-1); EOSINOPHILS # (AUTO) 0.15 x10^3/uL (0-0.4); EOSINOPHILS % (AUTO) 1 % (1-7); LYMPHOCYTES # (AUTO) 2.96 x10^3/uL (1-3.4); LYMPHOCYTES % (AUTO) 23 % (22-44); MD NO; MEAN CORPUSCULAR HGB CONC 33.1 g/dL (33.2-36.2); MEAN CORPUSCULAR VOLUME 84.6 fL (81-97); MEAN PLATELET VOLUME 7.6 fL (7.4-10.4); MONOCYTES # (AUTO) 1.43 x10^3/uL (0.2-0.8); MONOCYTES % (AUTO) 11 % (2-9); NEUTROPHILS # (AUTO) 8.21 x10^3/uL (1.8-6.8); NEUTROPHILS % (AUTO) 64 % (42-75); PLATELET COUNT 287 x10^3/uL (130-400); RED BLOOD COUNT 5.76 x10^6/uL (4.38-5.82); RED CELL DISTRIBUTION WIDTH 13.6 % (9.4-14.8)
[2020-03-23 00:29] LABS: ALBUMIN 4.4 g/dL (3.4-5.0); ANION GAP 9 mmol/L (5-15); CALCIUM 9.2 mg/dL (8.5-10.1); CHLORIDE 104 mmol/L (98-107); CREATININE 1.24 mg/dL (0.7-1.3)
[2020-03-23 00:34] LABS: SALICYLATE LEVEL < 1.7 mg/dL (2.8-20.0)
[2020-03-23] MEDS ORDERED: OLANZAPINE 10 MG TABLET ONE (00:39)
[2020-03-23] MEDS ORDERED: OLANZAPINE 10 MG TABLET PO SCH (09:00)
== END 2020-03-23 00:45 | disposition home or self-care (01) ==
LOC: ED 22:54
DX: F20.9 Schizophrenia, unspecified (principal); R45.851 Suicidal ideations; Z76.0 Encounter for issue of repeat prescription
CPT/HCPCS: 36415; 80048; 80307; 82040; 85025; 99283

== ENCOUNTER 2020-03-23 01:28 | Emergency (ER) | payer MEDICAID ==
[~2020-03-23] VITALS: Ht 172.7 cm; Wt 61.2 kg
--- NOTE | 2020-03-23 01:52 | NUR ---
PT NOW DENIES SI/HI. PT ONLY STATES HE HAD A PANIC ATTACK AND WOULD LIKE TO GO TO [place] FOR DETOX FROM DRUGS. HAS SPOKEN WITH PT AND ALL ARE AGREEABLE WITH PLAN.
[2020-03-23] MEDS ORDERED: HALOPERIDOL 5 MG/ML ONE (01:59)
[2020-03-23] MEDS ORDERED: HALOPERIDOL 5 MG/ML IM ONE (02:00)
[2020-03-23] MEDS ORDERED: LORazepam 1MG TABLET ONE (02:02)
[2020-03-23 02:12] VITALS: BP 135/74
--- NOTE | 2020-03-23 02:12 | NUR ---
PT GIVEN WATER, CRACKERS, AND TAXI VOUCHER TO [facility] PER REQUEST. PT AMBULATES WITH STEADY GAIT TO DC DESK.
[2020-03-23] MEDS ORDERED: LORazepam 1MG TABLET PO ONE (02:30)
== END 2020-03-23 02:14 | disposition home or self-care (01) ==
LOC: ED 01:57
DX: F41.1 Generalized anxiety disorder (principal); F17.210 Nicotine dependence, cigarettes, uncomplicated; Z79.2 Long term (current) use of antibiotics
CPT/HCPCS: 99283; 99406

== ENCOUNTER 2020-03-28 10:40 | Emergency (ER) | payer MEDICAID ==
[~2020-03-28] VITALS: Ht 172.7 cm; Wt 64.6 kg
[2020-03-28 10:47] VITALS: BP 129/78
--- NOTE | 2020-03-28 11:14 | NUR ---
PT TO RM AT THIS TIME, ERPROVIDER IN TO JON PT. PT STATES HE NEEES A SCRIPT REFILL "I NEED THIRTY XANAX, ITS THE ONLY THING THAT QUIETS MY CONSCIENCE" ISSACDER EXPLAINING TO PT THAT HE IS NOT GIVING HIM A MONTH REFILL FOR XANAX THAT HE CAN GO TO HIS PCP AND GET A REFILL, THIS IS NOT SOMETHING WE DO IN THE ER. PT THEN BECOMES AGITATED AND STATES "WELL IM FUCKED THEN, NAW ILL JUST GO" PT THEN SEEN IN LOBBY ATTEMPTING TO RECHECK IN, STATING TO RECREATION TEACHER THAT HED LIKE TO SPEAK TO ANOTHER DOCTOR. PT THEN LEFT LOBBY WITHOUT BEING SEEN. SCREENING TECH MADE AWARE, ERPROVIDER AWARE
== END 2020-03-28 11:08 | disposition left against medical advice (07) ==
LOC: ED 11:02
DX: F41.9 Anxiety disorder, unspecified (principal); R00.0 Tachycardia, unspecified; Z76.0 Encounter for issue of repeat prescription
CPT/HCPCS: 99281

== ENCOUNTER 2020-03-28 11:04 | Emergency (ER) | payer MEDICAID | END 2020-03-28 11:14 | disposition left against medical advice (07) | LOC: ED 11:10 | DX: Z53.21 Procedure and treatment not carried out due to patient leaving prior to being seen by health care provider (principal) ==

== ENCOUNTER 2020-04-24 06:54 | Inpatient (IN) | payer BC, MEDICAID ==
[~2020-04-24] VITALS: Ht 172.7 cm; Wt 59.0 kg
[2020-04-24] MEDS ORDERED: SODIUM CHLORIDE 0.9% 1,000ML IVBOLUS ONE (08:30)
[2020-04-24] MEDS ORDERED: ZIPRASIDONE 20 MG INJ IM ONE ×2 (08:30→09:20)
[2020-04-24] MEDS ORDERED: LIDOCAINE 1%-EPI 1:100K, 20ML SQ ONE (08:30)
[2020-04-24] MEDS ORDERED: CLINDAMYCIN PMX 900MG/50ML 50 ML IVPB ONE (08:30)
[2020-04-24] MEDS ORDERED: SODIUM CHLORIDE FLUSH 10ML SYR IVF ONE (08:30)
[2020-04-24 09:19] LABS: MEAN CORPUSCULAR HEMOGLOBIN 28.1 pg (27.5-34.5); MEAN CORPUSCULAR HGB CONC 32.4 g/dL (33.2-36.2); MEAN PLATELET VOLUME 7.5 fL (7.4-10.4); PLATELET COUNT 295 x10^3/uL (130-400); RED BLOOD COUNT 5.21 x10^6/uL (4.38-5.82); RED CELL DISTRIBUTION WIDTH 13.1 % (9.4-14.8)
[2020-04-24] MEDS ORDERED: CLINDAMYCIN PMX 900MG/50ML 50 ML ONE (09:20)
[2020-04-24] MEDS ORDERED: LIDOCAINE 1%-EPI 1:100K, 20ML ONE (09:21)
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
[2020-04-24 09:44] LABS: BASOPHILS % (AUTO) 0 % (0-1); EOSINOPHILS # (AUTO) 0.01 x10^3/uL (0-0.4); EOSINOPHILS % (AUTO) 0 % (1-7); LYMPHOCYTES # (AUTO) 1.34 x10^3/uL (1-3.4); LYMPHOCYTES % (AUTO) 8 % (22-44); MD SCAN; MONOCYTES % (AUTO) 5 % (2-9); NEUTROPHILS # (AUTO) 14.47 x10^3/uL (1.8-6.8); NEUTROPHILS % (AUTO) 87 % (42-75)
[2020-04-24 09:59] LABS: ANION GAP 7 mmol/L (5-15); CALCIUM 9.1 mg/dL (8.5-10.1); CHLORIDE 103 mmol/L (98-107)
[2020-04-24 10:06] LABS: CREATININE 1.13 mg/dL (0.7-1.3)
[2020-04-24 12:00] VITALS: BP 118/77
[2020-04-24] MEDS ORDERED: KETOROLAC 30 MG/1 ML IV PRN (12:00)
[2020-04-24] MEDS ORDERED: HYDROcodone/APAP 5/325 TABLET PO PRN (12:00)
[2020-04-24] MEDS ORDERED: HYDROXYZINE PAMOATE 50MG CAP PO PRN (12:00)
[2020-04-24] MEDS ORDERED: ENALAPRILAT 1.25 MG/ML, 2ML IVPush PRN (12:00)
[2020-04-24] MEDS ORDERED: BISACODYL 10 MG SUPP PR PRN (12:00)
[2020-04-24] MEDS ORDERED: ACETAMINOPHEN 325 MG TABLET PO PRN (12:00)
[2020-04-24] MEDS ORDERED: ONDANSETRON ODT 4 MG PO PRN (12:00)
[2020-04-24] MEDS ORDERED: LORazepam 2 MG/ML, 1ML IVPush PRN (12:00)
[2020-04-24] MEDS ORDERED: ONDANSETRON 2MG/ML, 2ML IVPush PRN (12:00)
[2020-04-24] MEDS ORDERED: POLYETHYLENE GLYCOL 17 GM PACKET PO PRN (12:00)
[2020-04-24 13:44] LABS: HCT (SEDRATE) 45.3 % (39.2-51.8)
[2020-04-24] MEDS: NS + 20MEQ KCL 1,000 ML IV SCH (14:03)
[2020-04-24] MEDS: CLINDAMYCIN PMX 600MG/50ML 50 ML IV SCH (17:30)
[2020-04-24 18:30] VITALS: BP 98/64
[2020-04-24] MEDS: ENOXAPARIN 40 MG/0.4 ML SQ SCH ×2 (19:30→20:11)
[2020-04-25 00:37] VITALS: BP 88/56
[2020-04-25] MEDS ORDERED: SODIUM CHLORIDE 0.9%, 500ML IVBOLUS ONE (00:40)
[2020-04-25 01:27] VITALS: BP 116/74
[2020-04-25] MEDS: CLINDAMYCIN PMX 600MG/50ML 50 ML IV SCH ×3 (01:49→17:54)
[2020-04-25] MEDS: NS + 20MEQ KCL 1,000 ML IV SCH (01:49)
[2020-04-25 06:00] LABS: ANION GAP 5 mmol/L (5-15); CALCIUM 8.5 mg/dL (8.5-10.1); CHLORIDE 111 mmol/L (98-107); CREATININE 0.78 mg/dL (0.7-1.3)
[2020-04-25 06:03] LABS: BASOPHILS # (AUTO) 0.04 x10^3/uL (0-0.1); BASOPHILS % (AUTO) 0 % (0-1); EOSINOPHILS # (AUTO) 0.11 x10^3/uL (0-0.4); EOSINOPHILS % (AUTO) 1 % (1-7); LYMPHOCYTES # (AUTO) 2.11 x10^3/uL (1-3.4); LYMPHOCYTES % (AUTO) 19 % (22-44); MD NO; MEAN CORPUSCULAR HEMOGLOBIN 28.3 pg (27.5-34.5); MEAN CORPUSCULAR HGB CONC 32.5 g/dL (33.2-36.2); MEAN PLATELET VOLUME 7.8 fL (7.4-10.4); MONOCYTES % (AUTO) 9 % (2-9); NEUTROPHILS # (AUTO) 8.01 x10^3/uL (1.8-6.8); NEUTROPHILS % (AUTO) 71 % (42-75); PLATELET COUNT 262 x10^3/uL (130-400); RED BLOOD COUNT 4.61 x10^6/uL (4.38-5.82); RED CELL DISTRIBUTION WIDTH 13.2 % (9.4-14.8)
[2020-04-25 07:56] VITALS: BP 102/65
[2020-04-25] MEDS: SENNA/DOCUSATE TABLET PO SCH (08:50)
[2020-04-25] MEDS: OLANZAPINE 10 MG TABLET PO SCH (08:50)
[2020-04-25 15:12] VITALS: BP 107/71
[2020-04-25] MEDS: ENOXAPARIN 40 MG/0.4 ML SQ SCH (19:44)
[2020-04-25 20:14] VITALS: BP 102/63
[2020-04-26 00:33] VITALS: BP 101/64
[2020-04-26] MEDS: CLINDAMYCIN PMX 600MG/50ML 50 ML IV SCH ×3 (01:09→10:29)
[2020-04-26 07:49] VITALS: BP 98/61
[2020-04-26] MEDS: SENNA/DOCUSATE TABLET PO SCH (09:00)
[2020-04-26] MEDS: OLANZAPINE 10 MG TABLET PO SCH (10:29)
[2020-04-26 10:30] VITALS: BP 96/60
== END 2020-04-26 11:00 | disposition left against medical advice (07) | DRG 872 ==
LOC: ED 08:32 → 3N 11:20 → ED 12:08
PROVIDERS: ADMIT Hospitalist; ATTEND Hospitalist
PROC: 0X9D0ZZ Drainage of Right Lower Arm, Open Approach (ICD-10-PCS; principal; 2020-04-24)
DX: A41.9 Sepsis, unspecified organism (principal); L02.413 Cutaneous abscess of right upper limb; L03.113 Cellulitis of right upper limb; L03.311 Cellulitis of abdominal wall; F15.10 Other stimulant abuse, uncomplicated; F20.9 Schizophrenia, unspecified; I10 Essential (primary) hypertension; I95.9 Hypotension, unspecified; R00.0 Tachycardia, unspecified; Z59.0 Homelessness; Z91.14 Patient's other noncompliance with medication regimen
CPT/HCPCS: 36415; 80048; 83605; 84145; 85025; 85651; 86140; 87040; G0378; J1650; J3480; J3486; J7030; J7040

== ENCOUNTER 2020-05-01 10:49 | Emergency (ER) | payer MEDICAID ==
[~2020-05-01] VITALS: Ht 172.7 cm; Wt 55.1 kg
[2020-05-01 10:53] VITALS: BP 116/68
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
--- NOTE | 2020-05-01 12:02 | NUR ---
PT EATING CRACKERS, VERBALIZED NO NEEDS AT THIS TIME. PLAN OF CARE, AWAITING NETWORK CONTROL SUPERVISOR.
--- NOTE | 2020-05-01 12:31 | NUR ---
TASK RN, FIRST CONTACT WITH PT. Pt sitting on [employer]pirics watching TV. Provided pt lunch tray. Provided pt water. No other needs expressed at this time. Call light within reach.
--- NOTE | 2020-05-01 13:21 | NUR ---
BREAK RN NOTE: PT SLEEPING ON GURNEY, RESPS EVEN AND UNLABORED. AWAITING PSYCH DIRECTOR OF DANCE CONSULT AT THIS TIME.
--- NOTE | 2020-05-01 13:46 | NUR ---
REPORT RECEIVED FROM TEDDY OLMEDO.
--- NOTE | 2020-05-01 14:03 | NUR ---
PT SLEEPING ON GURNEY W/ SITTER OUTSIDE ROOM FOR SAFETY, RESP EVEN AND UNLABORED, NADN.
--- NOTE | 2020-05-01 15:04 | NUR ---
PT VERBALIZED UNDERSTANDING OF DC INSTRUCTIONS. AMBULATED TO THE DC DESK W/ A STEADY GAIT.
== END 2020-05-01 15:05 | disposition home or self-care (01) ==
LOC: ED 12:00
DX: F20.89 Other schizophrenia (principal); F15.10 Other stimulant abuse, uncomplicated
CPT/HCPCS: 99284

== ENCOUNTER 2020-05-09 15:51 | Emergency (ER) | payer MEDICAID ==
[~2020-05-09] VITALS: Ht 172.7 cm; Wt 54.6 kg
[2020-05-09 15:52] VITALS: BP 120/78
--- NOTE | 2020-05-09 16:32 | NUR ---
PT STATES "IM HERE BECAUSE SOMEONE HAS DONE SOMETHING TO ME, IM NOT MYSELF, IM NOT THANKFUL OR GRATEFUL FOR ANYTHING ANYMORE. IM JUST NOT RIGHT IN MY BODY OR HEAD. I TAKE XANAX TO CALM ME DOWN AND I DO METH SO ILL STAY UP SO I CAN SLEEP" PT DENIES SI/HI
--- NOTE | 2020-05-09 17:28 | NUR ---
PT not in room when RN came into room to discharge pt
== END 2020-05-09 17:30 ==
LOC: ED 16:57
DX: F19.14 Other psychoactive substance abuse with psychoactive substance-induced mood disorder (principal); F15.10 Other stimulant abuse, uncomplicated; F32.9 Major depressive disorder, single episode, unspecified; Z88.8 Allergy status to other drugs, medicaments and biological substances
CPT/HCPCS: 99281

== ENCOUNTER 2020-05-17 14:11 | Emergency (ER) | payer MEDICAID ==
[~2020-05-17] VITALS: Ht 172.7 cm; Wt 54.0 kg
[2020-05-17 14:26] VITALS: BP 126/72
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
--- NOTE | 2020-05-17 15:00 | NUR ---
SAFETY PRECAUTIONS IN PLACE, BELONGINGS IN LOCKER.
[2020-05-17 15:23] LABS: BASOPHILS # (AUTO) 0.01 x10^3/uL (0-0.1); BASOPHILS % (AUTO) 0 % (0-1); EOSINOPHILS # (AUTO) 0.06 x10^3/uL (0-0.4); EOSINOPHILS % (AUTO) 1 % (1-7); LYMPHOCYTES % (AUTO) 10 % (22-44); MD NO; MEAN CORPUSCULAR HEMOGLOBIN 28.2 pg (27.5-34.5); MEAN CORPUSCULAR VOLUME 85.5 fL (81-97); MEAN PLATELET VOLUME 8.4 fL (7.4-10.4); MONOCYTES # (AUTO) 0.39 x10^3/uL (0.2-0.8); MONOCYTES % (AUTO) 6 % (2-9); NEUTROPHILS # (AUTO) 5.59 x10^3/uL (1.8-6.8); NEUTROPHILS % (AUTO) 83 % (42-75); PLATELET COUNT 183 x10^3/uL (130-400); RED BLOOD COUNT 5.18 x10^6/uL (4.38-5.82); RED CELL DISTRIBUTION WIDTH 13.1 % (9.4-14.8)
[2020-05-17 15:37] LABS: ALANINE AMINOTRANSFERASE 22 U/L (12-78); ALBUMIN 3.6 g/dL (3.4-5.0); ANION GAP 7 mmol/L (5-15); CALCIUM 8.8 mg/dL (8.5-10.1); CHLORIDE 104 mmol/L (98-107)
[2020-05-17 15:39] LABS: ALKALINE PHOSPHATASE 91 U/L (45-117); BILIRUBIN,TOTAL 0.7 mg/dL (0.2-1.0); CREATININE 1.01 mg/dL (0.7-1.3); TOTAL PROTEIN 7.9 g/dL (6.4-8.2)
[2020-05-17 15:53] LABS: SALICYLATE LEVEL < 1.7 mg/dL (2.8-20.0)
--- NOTE | 2020-05-17 16:00 | NUR ---
snack provided. safety precautions in place.
[2020-05-17 16:29] LABS: MICROSCOPIC NOT IND
[2020-05-17 16:40] LABS: AMPHETAMINE SCREEN, URINE Positive (Negative); BARBITURATE SCREEN, URINE Negative (Negative); BENZODIAZEPINE SCREEN, URINE Negative (Negative); CANNABINOID SCREEN, URINE Positive (Negative); COCAINE SCREEN, URINE Negative (Negative); METHADONE SCREEN, URINE Negative (Negative); OPIATE SCREEN, URINE Negative (Negative)
--- NOTE | 2020-05-17 16:50 | NUR ---
Medicated as ordered, pt resting in bed. Safety precautions in place.
--- NOTE | 2020-05-17 16:55 | NUR ---
Yudith ROLLING MACHINE OPERATOR AUTOMATIC at bedside for eval
[2020-05-17] MEDS ORDERED: ACETAMINOPHEN 500 MG TABLET PO ONE (17:00)
[2020-05-17] MEDS ORDERED: ACETAMINOPHEN 500 MG TABLET ONE (17:09)
[2020-05-17] MEDS ORDERED: OLANZAPINE ODT 10MG PO ONE (17:30)
--- NOTE | 2020-05-17 18:11 | NUR ---
discharge instructions reviewed.
== END 2020-05-17 18:15 | disposition home or self-care (01) ==
LOC: ED 17:28
DX: F43.0 Acute stress reaction (principal); Z20.828 Contact with and (suspected) exposure to other viral communicable diseases; R50.9 Fever, unspecified; F41.1 Generalized anxiety disorder; F32.9 Major depressive disorder, single episode, unspecified; R45.851 Suicidal ideations; R94.31 Abnormal electrocardiogram [ECG] [EKG]; Z88.9 Allergy status to unspecified drugs, medicaments and biological substances; Z79.899 Other long term (current) drug therapy
CPT/HCPCS: 36415; 71045; 80053; 80307; 81003; 85025; 87635; 93005; 99285

== ENCOUNTER 2020-05-18 16:05 | Emergency (ER) | payer MEDICAID ==
[~2020-05-18] VITALS: Ht 172.7 cm; Wt 54.8 kg
[2020-05-18 16:12] VITALS: BP 140/79
--- NOTE | 2020-05-18 17:42 | NUR ---
Don figueredo in ED - 05/18/20 at 1743 by CHELITA MARINE ENGINEERING PROFESSOR: PT TO ROOM AT THIS TIMECharlotte GARCES
--- NOTE | 2020-05-18 17:43 | NUR ---
CATERERS HELPER: PT LEFT ER LOBBY. LWBS
== END 2020-05-18 17:45 | disposition left against medical advice (07) ==
LOC: ED 17:30
DX: R45.851 Suicidal ideations (principal); Z53.21 Procedure and treatment not carried out due to patient leaving prior to being seen by health care provider

== ENCOUNTER 2020-05-18 19:03 | Emergency (ER) | payer BC, MEDICAID ==
[~2020-05-18] VITALS: Ht 172.7 cm; Wt 53.6 kg
[2020-05-18 19:05] VITALS: BP 132/95
--- NOTE | 2020-05-18 19:40 | NUR ---
PT IN GOWN IN [facility]. ALL PERSONAL BELONGINGS CONFISCATED AND LOCKED IN SECURED STORAGE. PT ROOM SECURED FOR PT AND STAFF SAFETY. LAB IS AT BS FOR PT BLOOD DRAW. PT VERBALIZES UNDERSTANDING FOR NEED FOR URINE SAMPLE. PROVIDER TO SEE PT AT THIS TIME. PT BELONGINGS PLACED IN 1 OF 1 BAGS AND LOCKED IN SECURED STORAGE. SITTER REQUESTED FROM TEACHING MANAGER AT THIS TIME.
[2020-05-18 19:52] LABS: ALANINE AMINOTRANSFERASE 35 U/L (12-78); ALBUMIN 3.7 g/dL (3.4-5.0); ANION GAP 9 mmol/L (5-15); CALCIUM 8.9 mg/dL (8.5-10.1); CHLORIDE 103 mmol/L (98-107); CREATININE 1.13 mg/dL (0.7-1.3); SALICYLATE LEVEL < 1.7 mg/dL (2.8-20.0)
[2020-05-18 19:54] LABS: ALKALINE PHOSPHATASE 101 U/L (45-117); BILIRUBIN,TOTAL 0.8 mg/dL (0.2-1.0); TOTAL PROTEIN 8.6 g/dL (6.4-8.2)
[2020-05-18 20:04] LABS: BASOPHILS # (AUTO) 0.02 x10^3/uL (0-0.1); BASOPHILS % (AUTO) 0 % (0-1); EOSINOPHILS # (AUTO) 0.01 x10^3/uL (0-0.4); EOSINOPHILS % (AUTO) 0 % (1-7); LYMPHOCYTES # (AUTO) 1.24 x10^3/uL (1-3.4); LYMPHOCYTES % (AUTO) 18 % (22-44); MD NO; MEAN CORPUSCULAR HGB CONC 32.5 g/dL (33.2-36.2); MEAN PLATELET VOLUME 8.9 fL (7.4-10.4); MONOCYTES # (AUTO) 0.98 x10^3/uL (0.2-0.8); MONOCYTES % (AUTO) 14 % (2-9); NEUTROPHILS # (AUTO) 4.61 x10^3/uL (1.8-6.8); NEUTROPHILS % (AUTO) 67 % (42-75); PLATELET COUNT 172 x10^3/uL (130-400); RED BLOOD COUNT 5.45 x10^6/uL (4.38-5.82); RED CELL DISTRIBUTION WIDTH 13.5 % (9.4-14.8)
--- NOTE | 2020-05-18 20:25 | NUR ---
PT MEDICATED PER MAR FOR ANXIETY.
[2020-05-18 20:30] LABS: AMPHETAMINE SCREEN, URINE Positive (Negative); BARBITURATE SCREEN, URINE Negative (Negative); BENZODIAZEPINE SCREEN, URINE Negative (Negative); CANNABINOID SCREEN, URINE Positive (Negative); COCAINE SCREEN, URINE Negative (Negative); METHADONE SCREEN, URINE Negative (Negative); OPIATE SCREEN, URINE Negative (Negative)
--- NOTE | 2020-05-18 21:24 | NUR ---
pt d/c with d/c summary and scripts. all questions answered. pt ambulates to registration desk with steady gait for d/c home. pt denies any other needs pertaining to this visit. pt reports positive improvement in mood after medication per mar and refreshments were provided to pt upon d/c.
== END 2020-05-18 21:27 | disposition home or self-care (01) ==
LOC: ED 20:00
DX: F41.1 Generalized anxiety disorder (principal); F32.9 Major depressive disorder, single episode, unspecified
CPT/HCPCS: 36415; 80053; 80307; 85025; 99283

== ENCOUNTER 2020-05-26 07:46 | Emergency (ER) | payer MEDICAID ==
[~2020-05-26] VITALS: Ht 172.7 cm; Wt 52.8 kg
[2020-05-26 07:53] VITALS: BP 102/74
--- NOTE | 2020-05-26 08:02 | NUR ---
PT TO ROOM FROM TRIAGE WITH STEADY GAIT AND BALANCE. NADN AT THIS TIME.
--- NOTE | 2020-05-26 08:29 | NUR ---
Patient given discharge instructions and they have confirmed that they understand the instructions. Patient ambulatory with steady gait. Pt left with d/c paperwork, Rx, and all personal belongings. NADN. No other needs expressed. Addendum: 05/26/20 at 0841 by [facility] upon discharge pt refused to take d/c paperwork and Rx. Rx and d/c paperwork at charge nurses station. Patient given discharge instructions and they have confirmed that they understand the instructions. Patient ambulatory with steady gait. Pt left with all personal belongings.
== END 2020-05-26 08:31 | disposition home or self-care (01) ==
LOC: ED 08:10
DX: L24.9 Irritant contact dermatitis, unspecified cause (principal); F20.9 Schizophrenia, unspecified; F28 Other psychotic disorder not due to a substance or known physiological condition; F17.210 Nicotine dependence, cigarettes, uncomplicated
CPT/HCPCS: 99283

== ENCOUNTER 2020-06-04 18:05 | Emergency (ER) | payer MEDICAID ==
--- NOTE | 2020-06-04 18:17 | NUR ---
CALLED FOR PT TWICE IN LOBBY. NO RESPONSE
--- NOTE | 2020-06-04 18:25 | NUR ---
CALLED FOR PT AGAIN. NO RESPONSE
--- NOTE | 2020-06-04 18:53 | NUR ---
PATIENT CALLED AGAIN IN TRIAGE, NO ANSWER. NOT IN THE LOBBY
== END 2020-06-04 18:56 | disposition left against medical advice (07) ==
LOC: ED 18:15
DX: Z53.21 Procedure and treatment not carried out due to patient leaving prior to being seen by health care provider (principal)

== ENCOUNTER 2020-06-06 20:36 | Emergency (ER) | payer MEDICAID ==
[~2020-06-06] VITALS: Ht 172.7 cm; Wt 54.4 kg
[2020-06-06 20:44] VITALS: BP 125/87
--- NOTE | 2020-06-06 21:16 | NUR ---
PT AMBULATORY TO ROOM WITH STEADY GAIT AND CHANGED SELF IN TO GOWN.
[2020-06-06] MEDS ORDERED: OLANZAPINE 10 MG TABLET ONE (21:22)
[2020-06-06] MEDS ORDERED: LORazepam 1MG TABLET ONE (21:23)
--- NOTE | 2020-06-06 21:29 | NUR ---
PT SITTING IN BED, NO SIGNS OF DISTRESS.
[2020-06-06] MEDS ORDERED: OLANZAPINE 10 MG TABLET PO SCH (21:30)
[2020-06-06] MEDS ORDERED: LORazepam 1MG TABLET PO ONE (21:30)
[2020-06-06] MEDS ORDERED: OLANZAPINE 10 MG TABLET PO ONE (21:30)
--- NOTE | 2020-06-06 21:39 | NUR ---
PT PROVIDED WITH FOOD AT REQUEST AND ERP OKAY, AND BLANKET. ALL NEEDS MET AT THIS TIME.
== END 2020-06-06 22:00 | disposition home or self-care (01) ==
LOC: ED 21:30
DX: F41.1 Generalized anxiety disorder (principal); R44.1 Visual hallucinations; Z72.9 Problem related to lifestyle, unspecified
CPT/HCPCS: 99283

== ENCOUNTER 2020-06-21 18:50 | Emergency (ER) | payer BC, MEDICAID ==
[~2020-06-21] VITALS: Ht 172.7 cm; Wt 53.2 kg
[2020-06-21 19:02] VITALS: BP 112/80
--- NOTE | 2020-06-21 20:06 | NUR ---
NO ANSWER WHEN CALLED FOR ROOM, NEXT PT ROOMED
--- NOTE | 2020-06-21 20:53 | NUR ---
PT RESTING ON GURNEY, GIVEN WARM BLANKET FOR COMFORT, STATES HE CAME IN FOR PAIN SOMEWHERE. PT NON SPECIFIC ON PAIN LOCATION. FLAT AFFECT, GROSS NEURO INTACT, NAD, VSS. CAROL TATE AT BS FOR EVAL AND POC. WCTM. WAITING FOR ADDITIONAL ORDERS.
--- NOTE | 2020-06-21 21:24 | NUR ---
Patient given discharge instructions and they have confirmed that they understand the instructions. Patient ambulatory with steady gait. NAD, VSS, denies additional needs or questions. no belonings left in room after dc.
== END 2020-06-21 21:26 | disposition home or self-care (01) ==
LOC: ED 21:10
DX: R06.00 Dyspnea, unspecified (principal); R06.02 Shortness of breath; Z76.0 Encounter for issue of repeat prescription; Z72.9 Problem related to lifestyle, unspecified
CPT/HCPCS: 71046; 99283

== ENCOUNTER 2020-06-24 00:25 | Emergency (ER) | payer BC, MEDICAID ==
[~2020-06-24] VITALS: Ht 172.7 cm; Wt 54.0 kg
[2020-06-24 00:36] VITALS: BP 141/93
== END 2020-06-24 04:10 | disposition home or self-care (01) ==
LOC: ED 03:30
DX: L24.9 Irritant contact dermatitis, unspecified cause (principal); F15.20 Other stimulant dependence, uncomplicated; F22 Delusional disorders; Z72.9 Problem related to lifestyle, unspecified
CPT/HCPCS: 99283

== ENCOUNTER 2020-07-02 00:46 | Emergency (ER) | payer BC, MEDICAID ==
[~2020-07-02] VITALS: Ht 172.7 cm; Wt 55.6 kg
[2020-07-02 00:47] VITALS: BP 123/83
--- NOTE | 2020-07-02 01:05 | NUR ---
TASK RN: PT AMBULATES FROM TRIAGE TO ROOM WITH STEADY GAIT. PT RESTING IN [facility] AT THIS TIME WITH DR RODRIGUEZ AT FOR PT HISTORY AND ASSESSMENT.
[2020-07-02] MEDS ORDERED: ZIPRASIDONE 20 MG INJ IM ONE ×2 (01:18→01:30)
--- NOTE | 2020-07-02 01:23 | NUR ---
task rn: pt medicated per mar.
== END 2020-07-02 01:50 | disposition home or self-care (01) ==
LOC: ED 01:13
DX: F20.89 Other schizophrenia (principal); F15.129 Other stimulant abuse with intoxication, unspecified; Z72.9 Problem related to lifestyle, unspecified; F17.210 Nicotine dependence, cigarettes, uncomplicated; Z91.14 Patient's other noncompliance with medication regimen
CPT/HCPCS: 96372; 99283; 99406; J3486

== ENCOUNTER 2020-07-02 03:35 | Emergency (ER) | payer BC, MEDICAID ==
[~2020-07-02] VITALS: Ht 172.7 cm; Wt 57.0 kg
--- NOTE | 2020-07-02 03:47 | NUR ---
triage note:unable to obtain temp. in triage
--- NOTE | 2020-07-02 03:58 | NUR ---
PT LAYING IN BED, BLANKET COVERING FACE, RESPIRATIONS EVEN AND UNLABORED. WHEN THIS RN INTRODUCED SELF, PT REMOVED BLANKET COVERING, BUT DID NOT SAY ANYTHING.
--- NOTE | 2020-07-02 04:43 | NUR ---
ERP TO BEDSIDE, AWAITING ORDERS. PT CONDITION REMAINS UNCHANGED.
[2020-07-02 05:21] VITALS: BP 99/57
== END 2020-07-02 05:40 | disposition home or self-care (01) ==
LOC: ED 04:40
DX: F15.10 Other stimulant abuse, uncomplicated (principal); Z72.9 Problem related to lifestyle, unspecified; F20.9 Schizophrenia, unspecified
CPT/HCPCS: 99281

== ENCOUNTER 2020-07-29 22:54 | Inpatient (IN) | payer BC, MEDICAID ==
[~2020-07-29] VITALS: Ht 172.7 cm; Wt 60.8 kg
[2020-07-29] MEDS ORDERED: SODIUM CHLORIDE FLUSH 10ML SYR IVF ONE (23:30)
[2020-07-29] MEDS ORDERED: ACETAMINOPHEN 500 MG TABLET PO ONE (23:30)
[2020-07-29] MEDS ORDERED: SODIUM CHLORIDE 0.9% 1,000ML IVBOLUS ONE (23:30)
[2020-07-29] MEDS ORDERED: ACETAMINOPHEN 500 MG TABLET ONE (23:43)
[2020-07-30] LABS: RAPID INFLUENZA A Negative (Negative); RAPID INFLUENZA B Negative (Negative)
[2020-07-30 00:03] LABS: ALANINE AMINOTRANSFERASE 50 U/L (12-78); ALBUMIN 3.4 g/dL (3.4-5.0); ANION GAP 5 mmol/L (5-15); CALCIUM 8.6 mg/dL (8.5-10.1); CHLORIDE 104 mmol/L (98-107); CREATININE 1.09 mg/dL (0.7-1.3)
[2020-07-30 00:06] LABS: ALKALINE PHOSPHATASE 84 U/L (45-117); BILIRUBIN,TOTAL 0.5 mg/dL (0.2-1.0); TOTAL PROTEIN 7.7 g/dL (6.4-8.2)
[2020-07-30 00:22] LABS: BASOPHILS % (AUTO) 0 % (0-1); EOSINOPHILS % (AUTO) 1 % (1-7); LYMPHOCYTES % (AUTO) 10 % (22-44); MEAN CORPUSCULAR HEMOGLOBIN 27.1 pg (27.5-34.5); MEAN CORPUSCULAR HGB CONC 32.5 g/dL (33.2-36.2); MONOCYTES % (AUTO) 7 % (2-9); NEUTROPHILS % (AUTO) 82 % (42-75); PLATELET COUNT 375 x10^3/uL (130-400); RED BLOOD COUNT 4.85 x10^6/uL (4.38-5.82)
[2020-07-30] MEDS ORDERED: CEFTRIAXONE PMX 1GM/50ML 50 ML IV ONE (01:00)
[2020-07-30 01:15] LABS: MD SCAN
[2020-07-30 01:22] LABS: C-REACTIVE PROTEIN, QUANT 0.52 mg/dL (0.02-0.49)
[2020-07-30] MEDS ORDERED: DOCUSATE 100 MG CAPSULE PO PRN (01:30)
--- NOTE | 2020-07-30 01:37 | NUR ---
Break RN: roxannmd care of pt on behalf of primary RN for Lunch break and float. pt is still currently febrile. cooling measures initiated. pt is dozing intermittently with lights dimmed
[2020-07-30] MEDS ORDERED: IBUPROFEN 600 MG TABLET ONE (01:40)
[2020-07-30] MEDS ORDERED: CEFTRIAXONE PMX 1GM/50ML 50 ML ONE ×2 (01:41→19:59)
[2020-07-30 01:52] LABS: D-DIMER (DIC) 0.41 ug/mlFEU (0.00-0.52)
[2020-07-30 01:58] LABS: PROTIME 11.4 Seconds (9.6-11.5)
[2020-07-30] MEDS ORDERED: IBUPROFEN 600 MG TABLET PO SCH (02:00)
[2020-07-30 02:14] LABS: MICROSCOPIC NOT IND
[2020-07-30] MEDS ORDERED: SODIUM CHLORIDE 0.9% 1,000ML IVBOLUS ONE (02:30)
--- NOTE | 2020-07-30 02:30 | NUR ---
Break RN: pt has been medicated per order. well tolerated. resting in position of comfort. pt is currently on legal hold. denies SI/HI. calm and cooperative. pt has been sleeping. easily arousable
--- NOTE | 2020-07-30 02:45 | NUR ---
Break RN: sitte at bedside. pt slepeing in position of comfort. repot to Saloni OLMEDO
[2020-07-30] MEDS ORDERED: NICOTINE 14MG/24 HR PATCH.TD24 TD ONE (03:00)
--- NOTE | 2020-07-30 03:00 | NUR ---
Pt reports improved sx. A&o x4, more alert and responsive than upon arrival. Skin warm and dry, no longer diaphoretic, no rigors noted. Afebrile. HR improved, NSR 80s noted on monitor. Provided pt with snack and juice. Remains on tele and continuous O2 monitoring. Sitter at bedside.
[2020-07-30] MEDS ORDERED: CEFOTETAN PMX 1GM/50ML 50 ML IVPB ONE (04:00)
--- NOTE | 2020-07-30 04:05 | NUR ---
Resting comfortably on stretcher. Remains on tele/continuous O2 monitoring. VSS. Visible chest rise/fall noted. No s/sx acute distress. Sitter within immediate vicinity of pt
--- NOTE | 2020-07-30 04:18 | NUR ---
Provided pt with sandwich and bevarge. Pt reports improved sx. Afebrile, NSR 90s noted on monitor. Remains on tele/continuous O2 monitoring. Sitter immediately outside of room within direct eye sight of pt
--- NOTE | 2020-07-30 04:23 | NUR ---
Placed on hospital bed for comfort
--- NOTE | 2020-07-30 05:15 | NUR ---
Resting comfortably on hospital bed. Remains on tele/continuous O2 monitoring. No s/sx acute distress. Sitter remains within immediate vicinity of pt
--- NOTE | 2020-07-30 06:11 | NUR ---
Resting comfortably on stretcher. Visible chest rise/fall noted. No s/sx acute distress. Remains on tele/continuous O2 monitoring. NSR 80s noted on monitor. O2 remains high 90s RA. Sitter remains within immediate vicinity of pt
[2020-07-30] MEDS ORDERED: NICOTINE 14MG/24 HR PATCH.TD24 ONE (06:46)
[2020-07-30] MEDS ORDERED: ACETAMINOPHEN 325 MG TABLET ONE ×2 (06:46→16:30)
--- NOTE | 2020-07-30 07:00 | NUR ---
REPORT RECEIVED FROM HONORIO REYES
[2020-07-30] MEDS: ACETAMINOPHEN 325 MG TABLET PO PRN ×2 (07:30→16:33)
--- NOTE | 2020-07-30 07:38 | NUR ---
PT FOUND RESTING ON BED WITH EYES CLOSED. EVEN RISE AND FALL OF CHEST NOTED. PT ROUSED TO RN PRESENCE. PHYSICAL ASSESSMENT AND PSYCH COMPLETED. VSS. NO INCREASED WOB NOTED. PT DENIES SOB AND CP. PT STATES HE FEELS "TIRED". PT ASKED FOR FOOD AND TRAY TO BE ORDERED. MED ADMINISTERED PER DEC.
--- NOTE | 2020-07-30 07:39 | NUR ---
DELAY IN NOTE: PT CARE PT RESTING IN LINE OF SIGHT OF SITTER.
--- NOTE | 2020-07-30 08:47 | NUR ---
PT REFUSING AM BLOOD DRAW. HOSPITALIST BEDSIDE, WILL TALK TO HIM ABOUT BLOOD DRAW.
[2020-07-30 09:16] LABS: ALANINE AMINOTRANSFERASE 36 U/L (12-78); ALBUMIN 2.7 g/dL (3.4-5.0); ANION GAP 3 mmol/L (5-15); CALCIUM 8.2 mg/dL (8.5-10.1); CHLORIDE 114 mmol/L (98-107); CREATININE 1.13 mg/dL (0.7-1.3)
[2020-07-30 09:19] LABS: ALKALINE PHOSPHATASE 77 U/L (45-117); BILIRUBIN,TOTAL 0.4 mg/dL (0.2-1.0); TOTAL PROTEIN 6.6 g/dL (6.4-8.2)
[2020-07-30] MEDS ORDERED: THIAMINE 100MG TABLET ONE (10:07)
[2020-07-30] MEDS: ASCORBIC ACID 500 MG TABLET PO SCH ×3 (10:10→20:38)
[2020-07-30] MEDS: ZINC SULFATE 220 MG CAPSULE PO SCH (10:10)
[2020-07-30] MEDS: THIAMINE 100MG TABLET PO SCH ×2 (10:11→20:38)
--- NOTE | 2020-07-30 10:13 | NUR ---
PT MEDICATED PER DEC. VSS. PT IN VIEW OF SITTER. PT REQUESTING MORE FOOD.
[2020-07-30] MEDS: CHOLECALCIFEROL 5,000u TAB PO SCH (10:38)
--- NOTE | 2020-07-30 13:15 | NUR ---
[facility] Leigh Ann called and states that they are expecting patient back at their facility after he has been medically cleared and has a negative covid-19 result. They do not accept covid-19 positive patients and therefore patient needs a negative test as well as medical clearance faxed back to the facility before [facility] can accept patient back.
[2020-07-30] MEDS: NICOTINE 14MG/24 HR PATCH.TD24 TD SCH (13:54)
--- NOTE | 2020-07-30 14:53 | NUR ---
BREAK RN: PT RESTING, ATE 100% LUNCH, SITTER AT DOOR. ROOM SECURED
--- NOTE | 2020-07-30 15:31 | NUR ---
PT RESTING WITH EYESN CLOSED. PT WAKENED TO RN IN ROOM. VSS. SAMMI LINE FLUSHED AND PATENT.
--- NOTE | 2020-07-30 15:32 | NUR ---
PT IN DIRECT EYE LINE OF SITTER IN ANTEROOM.
--- NOTE | 2020-07-30 16:57 | NUR ---
DR. GOFF MADE AWARE OF POSITIVE BLOOD CULTURE. TELEPHONE ORDER RECEIVED FOR VANCO PER PHARMACY PROTOCOL. PHADEAN CONTACTED AND ADVISED OF MEDICTION ORDER.
[2020-07-30] MEDS ORDERED: VANCOMYCIN PER PHARMACY MC PRN (17:00)
[2020-07-30] MEDS: SODIUM CHLORIDE 0.9% 1,000 ML IV SCH (17:08)
[2020-07-30] MEDS ORDERED: VANCOMYCIN 1,300 MG in SODIUM CHLORIDE 0.9% 250 ML IV ONE (17:30)
--- NOTE | 2020-07-30 18:06 | NUR ---
PT LAUGHING TO HIMSELF AND STATES HE STARTS DOING THAT WHEN HE IS ANXIOUS. PT MEDICATED NOTED ON DEC. PROVIDED DINNER
--- NOTE | 2020-07-30 18:38 | NUR ---
PT WEIGHT UPDATED 60.8. IRENE IN PHARMACY ADVISED.
--- NOTE | 2020-07-30 18:59 | NUR ---
REPORT GUDELIA MONTAÑO ASSUMED CARE OF PT
[2020-07-30] MEDS ORDERED: PHARMACOKINETIC MONITORING MC PRN (19:00)
[2020-07-30] MEDS ORDERED: PHARMACOKINETIC CONSULTATION MC ONE (19:00)
--- NOTE | 2020-07-30 19:21 | NUR ---
SITTER OUTSIDE ROOM PT IN NAD AT THIS TIME
[2020-07-30] MEDS ORDERED: MELATONIN 5 MG TABLET ONE (20:09)
[2020-07-30] MEDS: MELATONIN 5 MG TABLET PO SCH (20:38)
--- NOTE | 2020-07-30 20:54 | NUR ---
PM MEDS GIVEN PT STATES FEELING BETTER THIS PM
--- NOTE | 2020-07-30 21:53 | NUR ---
PEANUT AND BUTTER SANDWITC GIVE PER PT REQUEST, WATER AT BEDSIDE PT ON ALL MONITORS VSS AT THIS TIME, NO OTHER NEEDS AT THIS TIME
[2020-07-31] MEDS ORDERED: CEFTRIAXONE PMX 1GM/50ML 50 ML ONE (01:31)
[2020-07-31] MEDS: CEFTRIAXONE PMX 1GM/50ML 50 ML IV SCH (01:48)
[2020-07-31] MEDS: SODIUM CHLORIDE 0.9% 1,000 ML IV SCH ×2 (03:20→16:34)
--- NOTE | 2020-07-31 04:43 | NUR ---
report to anand
[2020-07-31] MEDS ORDERED: VANCOMYCIN 1,200 MG in SODIUM CHLORIDE 0.9% 250 ML IV SCH (05:00)
[2020-07-31 05:41] LABS: BASOPHILS % (AUTO) 0 % (0-1); EOSINOPHILS % (AUTO) 3 % (1-7); LYMPHOCYTES % (AUTO) 26 % (22-44); MEAN CORPUSCULAR HEMOGLOBIN 27.5 pg (27.5-34.5); MEAN CORPUSCULAR HGB CONC 32.3 g/dL (33.2-36.2); MEAN PLATELET VOLUME 6.8 fL (7.4-10.4); MONOCYTES % (AUTO) 17 % (2-9); NEUTROPHILS % (AUTO) 55 % (42-75); PLATELET COUNT 293 x10^3/uL (130-400); RED BLOOD COUNT 4.74 x10^6/uL (4.38-5.82); RED CELL DISTRIBUTION WIDTH 13.9 % (9.4-14.8)
[2020-07-31 05:53] LABS: D-DIMER 0.56 ug/mlFEU (0.00-0.52); MD NO
[2020-07-31 05:54] LABS: ALANINE AMINOTRANSFERASE 35 U/L (12-78); ALBUMIN 2.9 g/dL (3.4-5.0); ANION GAP 4 mmol/L (5-15); CALCIUM 8.7 mg/dL (8.5-10.1); CHLORIDE 107 mmol/L (98-107); CREATININE 0.72 mg/dL (0.7-1.3)
[2020-07-31 06:10] LABS: ALKALINE PHOSPHATASE 77 U/L (45-117); BILIRUBIN,TOTAL 0.4 mg/dL (0.2-1.0); C-REACTIVE PROTEIN, QUANT 2.51 mg/dL (0.02-0.49); TOTAL PROTEIN 7.2 g/dL (6.4-8.2)
--- NOTE | 2020-07-31 07:09 | NUR ---
Took report from Saloni Ybarra RN, assume care at this time.
--- NOTE | 2020-07-31 07:31 | NUR ---
Patient was seen here yesterday and put on a hold for having auditory and visual hallucinations and feelings of paranoia.Unable to verbalize a safe discharge so he was sent to [facility] where he had a fever of 103 and sent back for medical clearance. Pt is calm in bed, denies , son, pain. orderd a diet tray. denies si/hi. Room is safe and secure, KADEEM sitter outside room.
[2020-07-31] MEDS: ZINC SULFATE 220 MG CAPSULE PO SCH (09:00)
[2020-07-31] MEDS: CHOLECALCIFEROL 5,000u TAB PO SCH (09:00)
[2020-07-31] MEDS: ASCORBIC ACID 500 MG TABLET PO SCH ×3 (09:00→21:54)
[2020-07-31] MEDS: THIAMINE 100MG TABLET PO SCH ×2 (09:00→21:54)
[2020-07-31] MEDS: VANCOMYCIN 1,200 MG in SODIUM CHLORIDE 0.9% 250 ML IV SCH ×2 (13:00→21:54)
[2020-07-31] MEDS: NICOTINE 14MG/24 HR PATCH.TD24 TD SCH (14:00)
[2020-07-31] MEDS: OLANZAPINE 10 MG TABLET PO SCH (14:18)
[2020-07-31 16:15] VITALS: BP 117/79
[2020-07-31 21:31] VITALS: BP 111/72
[2020-07-31] MEDS: MELATONIN 5 MG TABLET PO SCH (21:53)
[2020-08-01] MEDS: CEFTRIAXONE PMX 1GM/50ML 50 ML IV SCH (02:44)
[2020-08-01 05:33] VITALS: BP 121/89
[2020-08-01] MEDS: VANCOMYCIN 1,200 MG in SODIUM CHLORIDE 0.9% 250 ML IV SCH ×3 (06:06→20:43)
[2020-08-01] MEDS: ZINC SULFATE 220 MG CAPSULE PO SCH (09:00)
[2020-08-01] MEDS: THIAMINE 100MG TABLET PO SCH ×2 (09:00→20:43)
[2020-08-01] MEDS: ASCORBIC ACID 500 MG TABLET PO SCH (09:00)
[2020-08-01] MEDS: CHOLECALCIFEROL 5,000u TAB PO SCH (09:00)
[2020-08-01] MEDS: OLANZAPINE 10 MG TABLET PO SCH (09:03)
[2020-08-01 10:11] LABS: BASOPHILS % (AUTO) 1 % (0-1); EOSINOPHILS % (AUTO) 4 % (1-7); LYMPHOCYTES % (AUTO) 43 % (22-44); MEAN CORPUSCULAR HEMOGLOBIN 27.6 pg (27.5-34.5); MEAN CORPUSCULAR HGB CONC 32.4 g/dL (33.2-36.2); MEAN PLATELET VOLUME 6.8 fL (7.4-10.4); MONOCYTES % (AUTO) 11 % (2-9); NEUTROPHILS % (AUTO) 41 % (42-75); PLATELET COUNT 325 x10^3/uL (130-400)
[2020-08-01 10:12] LABS: MD NO
[2020-08-01 10:13] LABS: ANION GAP 3 mmol/L (5-15); CALCIUM 9.8 mg/dL (8.5-10.1); CHLORIDE 107 mmol/L (98-107)
[2020-08-01] MEDS: SODIUM CHLORIDE 0.9% 1,000 ML IV SCH (11:43)
[2020-08-01] MEDS: NICOTINE 14MG/24 HR PATCH.TD24 TD SCH (13:15)
[2020-08-01 13:16] VITALS: BP 117/86
[2020-08-01 18:33] VITALS: BP 119/97
[2020-08-01] MEDS: MELATONIN 5 MG TABLET PO SCH (20:43)
[2020-08-02] MEDS: SODIUM CHLORIDE 0.9% 1,000 ML IV SCH ×2 (01:35→15:54)
[2020-08-02] MEDS: CEFTRIAXONE PMX 1GM/50ML 50 ML IV SCH (01:36)
[2020-08-02 05:06] LABS: ANION GAP 4 mmol/L (5-15); CALCIUM 9.3 mg/dL (8.5-10.1); CHLORIDE 105 mmol/L (98-107)
[2020-08-02 05:09] LABS: CREATININE 0.82 mg/dL (0.7-1.3); VANCOMYCIN,TROUGH 13.7 mcg/mL (5.0-10.0)
[2020-08-02 05:11] LABS: BASOPHILS % (AUTO) 0 % (0-1); EOSINOPHILS % (AUTO) 3 % (1-7); LYMPHOCYTES % (AUTO) 38 % (22-44); MEAN CORPUSCULAR HEMOGLOBIN 27.6 pg (27.5-34.5); MEAN CORPUSCULAR HGB CONC 33.2 g/dL (33.2-36.2); MEAN PLATELET VOLUME 6.9 fL (7.4-10.4); MONOCYTES % (AUTO) 10 % (2-9); NEUTROPHILS % (AUTO) 48 % (42-75); PLATELET COUNT 370 x10^3/uL (130-400); RED BLOOD COUNT 5.04 x10^6/uL (4.38-5.82); RED CELL DISTRIBUTION WIDTH 13.9 % (9.4-14.8)
[2020-08-02 05:13] LABS: MD NO
[2020-08-02] MEDS: VANCOMYCIN 1,200 MG in SODIUM CHLORIDE 0.9% 250 ML IV SCH ×3 (05:20→20:38)
[2020-08-02 08:16] VITALS: BP 100/63
[2020-08-02] MEDS: THIAMINE 100MG TABLET PO SCH ×2 (09:31→20:41)
[2020-08-02] MEDS: OLANZAPINE 10 MG TABLET PO SCH (09:31)
[2020-08-02] MEDS: NICOTINE 14MG/24 HR PATCH.TD24 TD SCH (15:54)
[2020-08-02 18:53] VITALS: BP 92/83
[2020-08-02] MEDS: MELATONIN 5 MG TABLET PO SCH (20:41)
[2020-08-03 00:32] VITALS: BP 107/67
[2020-08-03] MEDS: CEFTRIAXONE PMX 1GM/50ML 50 ML IV SCH (01:29)
[2020-08-03] MEDS: VANCOMYCIN 1,200 MG in SODIUM CHLORIDE 0.9% 250 ML IV SCH (04:59)
[2020-08-03] MEDS: SODIUM CHLORIDE 0.9% 1,000 ML IV SCH (05:03)
[2020-08-03 07:30] VITALS: BP 114/68
[2020-08-03] MEDS ORDERED: AMOXICILLIN/CLAV 875-125MG TABLET PO SCH (09:00)
[2020-08-03 09:14] LABS: BASOPHILS % (AUTO) 0 % (0-1); EOSINOPHILS % (AUTO) 4 % (1-7); LYMPHOCYTES % (AUTO) 42 % (22-44); MEAN CORPUSCULAR HEMOGLOBIN 27.3 pg (27.5-34.5); MEAN CORPUSCULAR HGB CONC 32.5 g/dL (33.2-36.2); MEAN PLATELET VOLUME 6.9 fL (7.4-10.4); MONOCYTES % (AUTO) 6 % (2-9); NEUTROPHILS % (AUTO) 48 % (42-75); PLATELET COUNT 336 x10^3/uL (130-400); RED BLOOD COUNT 4.94 x10^6/uL (4.38-5.82); RED CELL DISTRIBUTION WIDTH 14.1 % (9.4-14.8)
[2020-08-03 09:16] LABS: ANION GAP 5 mmol/L (5-15); CALCIUM 9.5 mg/dL (8.5-10.1); CHLORIDE 110 mmol/L (98-107); CREATININE 0.84 mg/dL (0.7-1.3)
[2020-08-03] MEDS: THIAMINE 100MG TABLET PO SCH (09:34)
[2020-08-03] MEDS: OLANZAPINE 10 MG TABLET PO SCH (09:35)
[2020-08-03 10:01] LABS: MD NO
[2020-08-03] MEDS ORDERED: OLAN10TA9 PO (14:28)
[2020-08-03] MEDS ORDERED: AMOX1TAB12 PO (14:28)
[2020-08-03 14:37] VITALS: BP 125/73
[2020-08-03] MEDS: NICOTINE 14MG/24 HR PATCH.TD24 TD SCH (17:31)
== END 2020-08-03 18:59 | DRG 153 ==
LOC: ED 23:58 → OBSVTOIN 07-30 00:52 → INTOOBSV 07-30 00:52 → EDIP 07-30 00:52 → 4NE 07-31 14:50 → 3N 08-01 14:09
PROVIDERS: ADMIT Family Medicine; ATTEND Internal Medicine
DX: J02.0 Streptococcal pharyngitis (principal); R65.10 Systemic inflammatory response syndrome (SIRS) of non-infectious origin without acute organ dysfunction; Z20.828 Contact with and (suspected) exposure to other viral communicable diseases; D72.810 Lymphocytopenia; F15.90 Other stimulant use, unspecified, uncomplicated; F17.200 Nicotine dependence, unspecified, uncomplicated; F20.9 Schizophrenia, unspecified; F31.9 Bipolar disorder, unspecified; F41.1 Generalized anxiety disorder; Z88.8 Allergy status to other drugs, medicaments and biological substances; Z59.0 Homelessness; Z91.14 Patient's other noncompliance with medication regimen
CPT/HCPCS: 36415; 71045; 80048; 80053; 80202; 81003; 82728; 83605; 83615; 83735; 84145; 85025; 85049; 85379; 85384; 85610; 85730; 86140; 87040; 87081; 87147; 87400; 87635; 87880; 93005; 93306; 93356; 96361; 96365; 96367; 99285; G0378; J0696; J3370; J7030; J7050

== ENCOUNTER → 2020-07-29 | Emergency (ER) | payer BC, MEDICAID ==
[~2020-07-29] VITALS: Ht 172.7 cm; Wt 58.6 kg
--- NOTE | 2020-07-29 11:51 | NUR ---
CHRIST INTO SE PT PT ON A HOLD
[2020-07-29 12:11] LABS: BASOPHILS % (AUTO) 1 % (0-1); EOSINOPHILS % (AUTO) 1 % (1-7); LYMPHOCYTES % (AUTO) 22 % (22-44); MEAN CORPUSCULAR HEMOGLOBIN 27.4 pg (27.5-34.5); MEAN CORPUSCULAR HGB CONC 32.8 g/dL (33.2-36.2); MEAN PLATELET VOLUME 6.8 fL (7.4-10.4); MONOCYTES % (AUTO) 6 % (2-9); NEUTROPHILS % (AUTO) 70 % (42-75); PLATELET COUNT 426 x10^3/uL (130-400); RED BLOOD COUNT 5.13 x10^6/uL (4.38-5.82); RED CELL DISTRIBUTION WIDTH 13.8 % (9.4-14.8)
[2020-07-29 12:19] LABS: ALBUMIN 3.7 g/dL (3.4-5.0); ANION GAP 5 mmol/L (5-15); CALCIUM 9.4 mg/dL (8.5-10.1); CHLORIDE 107 mmol/L (98-107)
[2020-07-29 12:22] LABS: ALANINE AMINOTRANSFERASE 53 U/L (12-78); ALKALINE PHOSPHATASE 95 U/L (45-117); BILIRUBIN,TOTAL 0.5 mg/dL (0.2-1.0); CREATININE 1.09 mg/dL (0.7-1.3); SALICYLATE LEVEL < 1.7 mg/dL (2.8-20.0); TOTAL PROTEIN 8.2 g/dL (6.4-8.2)
[2020-07-29 12:51] LABS: MD SCAN
--- NOTE | 2020-07-29 14:26 | NUR ---
BREAK RN- URINE COLLECTED. SAFETY PRECAUTIONS IN PLACE
[2020-07-29 14:46] LABS: AMPHETAMINE SCREEN, URINE Positive (Negative); BARBITURATE SCREEN, URINE Negative (Negative); BENZODIAZEPINE SCREEN, URINE Negative (Negative); CANNABINOID SCREEN, URINE Positive (Negative); COCAINE SCREEN, URINE Negative (Negative); METHADONE SCREEN, URINE Negative (Negative); OPIATE SCREEN, URINE Negative (Negative)
--- NOTE | 2020-07-29 17:29 | NUR ---
DENIED BY [facility]. UNABLE TO VERIFY INSURANCE. PACKET FAXED TO [facility], [facility] AND [facility]
--- NOTE | 2020-07-29 17:59 | NUR ---
IN HOSPITAL BED
--- NOTE | 2020-07-29 19:00 | NUR ---
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 HE IS CURRENTLY SLEEPING IN NO APPARENT DISTRESS, ASLEEP YET AROUSABLE. HE AWAKENS TO TOUCH AND VERBAL STIMULI. HE IS AWAITING TRANSFER VIA [facility] TO [facility]. HE DENIES ANY REQUESTS OR COMPLAINTS. HE IS NOT CURRENTLY RESPONDING TO INTERNAL STIMULI.
--- NOTE | 2020-07-29 20:09 | NUR ---
[facility] #45 AT BEDSIDE FOR TRANSFER TO [facility]. PATIENT IS CALM AND COOPERATIVE. HE AMBULATED OUT OF ED WITH TRANSPORT ESCORT. Addendum: 07/29/20 at 2011 by [id number] [facility] #[id number] AT BEDSIDE FOR TRANSFER TO [facility]. PATIENT IS CALM AND COOPERATIVE. BELONGINGS FROM [facility] GIVEN TO EMT. HE AMBULATED OUT OF ED WITH TRANSPORT ESCORT.
[2020-07-29 20:10] VITALS: BP 128/74
== END ==
LOC: ED 12:49
DX: F20.89 Other schizophrenia (principal); R45.851 Suicidal ideations; F12.10 Cannabis abuse, uncomplicated; F15.10 Other stimulant abuse, uncomplicated; F17.200 Nicotine dependence, unspecified, uncomplicated
CPT/HCPCS: 36415; 80053; 80307; 85025; 99284

== ENCOUNTER 2020-08-12 04:09 | Emergency (ER) | payer BC, MEDICAID ==
[~2020-08-12] VITALS: Ht 172.7 cm; Wt 62.2 kg
[~2020-08-12 04:09] MED LIST changes: +AMOX1TAB12 PO
--- NOTE | 2020-08-12 04:47 | NUR ---
Pt presents to ed c/o si w/ no specific plan noted. Pt did not state this in triage, but told ERP they are SI and "it is cold out there..i dont want it to be a part of it anymore." States taking "a bunch of pills a couple days ago." Did not specify what those pills are. Will move to psych oriented room chau.
--- NOTE | 2020-08-12 04:50 | NUR ---
Pt moved to secured room at this time, belongings secured, labeled and placed in locker, pt provides urine specimen, collected and sent, warm blankets given. Pt states that he has not used any illicit drugs, that he is feeling suicidal this evening stating that he took "a bunch of pills" 2 days ago desiring to not wake up, states that currently he has no plan. Pt states that he had attemtped to harm self in the past with a plan to jump off of the [facility] however the police prevented this. states that this was several years ago. Pt denies currently using illicit drugs however has a history of meth abuse and non compliance with his medications. Pt with good eye contact, speech clear, is currently AA and O times 4, is expressing recurrent desire for food, warm blankets and sleep. Fluids to bedside and meal tray ordered. SItter outside room for pt safety
--- NOTE | 2020-08-12 04:51 | NUR ---
Pt report to Amena nelson. Pt moved to room [address] Sitter in hallway. Prompted to remove all of belongings, put them into bags, and get into gown.
[2020-08-12 05:12] LABS: BASOPHILS % (AUTO) 0 % (0-1); EOSINOPHILS % (AUTO) 4 % (1-7); LYMPHOCYTES % (AUTO) 33 % (22-44); MEAN CORPUSCULAR HEMOGLOBIN 27.9 pg (27.5-34.5); MEAN CORPUSCULAR HGB CONC 32.8 g/dL (33.2-36.2); MEAN PLATELET VOLUME 7.1 fL (7.4-10.4); MONOCYTES % (AUTO) 7 % (2-9); NEUTROPHILS % (AUTO) 57 % (42-75); PLATELET COUNT 348 x10^3/uL (130-400); RED BLOOD COUNT 4.89 x10^6/uL (4.38-5.82)
[2020-08-12 05:18] LABS: ANION GAP 3 mmol/L (5-15); CALCIUM 8.7 mg/dL (8.5-10.1); CHLORIDE 108 mmol/L (98-107)
[2020-08-12 05:19] LABS: ALBUMIN 3.5 g/dL (3.4-5.0)
[2020-08-12 05:25] LABS: SALICYLATE LEVEL < 1.7 mg/dL (2.8-20.0)
[2020-08-12 05:29] LABS: MD NO
--- NOTE | 2020-08-12 05:52 | NUR ---
PT SLEEPING QUIETLY, RESP RATE EVEN AND REGULAR, SITTER OUTSIDE ROOM FOR PT SAFETY.
[2020-08-12 06:03] LABS: AMPHETAMINE SCREEN, URINE Positive (Negative); BARBITURATE SCREEN, URINE Negative (Negative); BENZODIAZEPINE SCREEN, URINE Negative (Negative); CANNABINOID SCREEN, URINE Positive (Negative); COCAINE SCREEN, URINE Negative (Negative); METHADONE SCREEN, URINE Negative (Negative); OPIATE SCREEN, URINE Negative (Negative)
--- NOTE | 2020-08-12 06:31 | NUR ---
PT RESTING QUEITLY, RESP RATE EVEN AND REGULAR, SITTER OUTSIDE ROOM FOR PT SAFETY.
--- NOTE | 2020-08-12 07:08 | NUR ---
report from HONORIO Beckwith. patient in bed resting. visited by MD and patient tbd.
[2020-08-12 07:23] VITALS: BP 128/78
--- NOTE | 2020-08-12 07:25 | NUR ---
belongings all returned. discharge reviewed.
== END 2020-08-12 07:26 | disposition home or self-care (01) ==
LOC: ED 05:20
DX: F20.89 Other schizophrenia (principal)
CPT/HCPCS: 36415; 80048; 80307; 82040; 84443; 85025; 99284; Q0177

== ENCOUNTER 2020-08-20 18:34 | Emergency (ER) | payer BC, MEDICAID ==
[~2020-08-20] VITALS: Ht 172.7 cm; Wt 63.9 kg
[2020-08-20] MEDS ORDERED: ACETAMINOPHEN 500 MG TABLET ONE (18:55)
[2020-08-20] MEDS ORDERED: SODIUM CHLORIDE 0.9% 1,000ML IVBOLUS ONE ×2 (19:00→21:30)
[2020-08-20] MEDS ORDERED: ACETAMINOPHEN 500 MG TABLET PO ONE (19:00)
[2020-08-20 19:24] LABS: BASOPHILS % (AUTO) 0 % (0-1); EOSINOPHILS % (AUTO) 1 % (1-7); LYMPHOCYTES % (AUTO) 12 % (22-44); MEAN CORPUSCULAR HEMOGLOBIN 27.8 pg (27.5-34.5); MEAN CORPUSCULAR HGB CONC 32.7 g/dL (33.2-36.2); MEAN PLATELET VOLUME 7.3 fL (7.4-10.4); MONOCYTES % (AUTO) 7 % (2-9); NEUTROPHILS % (AUTO) 81 % (42-75); PLATELET COUNT 320 x10^3/uL (130-400); RED BLOOD COUNT 5.03 x10^6/uL (4.38-5.82); RED CELL DISTRIBUTION WIDTH 15.5 % (9.4-14.8)
[2020-08-20 19:26] LABS: ANION GAP 10 mmol/L (5-15); CHLORIDE 102 mmol/L (98-107); CREATININE 1.35 mg/dL (0.7-1.3)
--- NOTE | 2020-08-20 20:02 | NUR ---
pt to room from lobby
[2020-08-20 20:24] LABS: MD SCAN
--- NOTE | 2020-08-20 20:24 | NUR ---
PT CAME IN CO OF "MY MIND IS RACING, I CANT FOCUS, MY BREATH IS HOT, MY SKIN IS MELTING". PT FEBRILE IN TRIAGE. PT MEDICATED PER DEC. LABS DRAWN. X RAY COMPLETE. PT RESTING IN GURNEY. IV FLUIDS INFUSING. PT HAS PYSCH HISTORY AND HIS SPEECH IS NOT MAKING SENSE - FLIGHT OF IDEAS AND THOUGHTS. PT HAS DENIED SI/SA AT THIS TIME
[2020-08-20 21:05] LABS: MICROSCOPIC NOT IND
[2020-08-20] MEDS ORDERED: CEFTRIAXONE PMX 1GM/50ML 50 ML ONE (21:10)
[2020-08-20] MEDS ORDERED: CEFTRIAXONE PMX 1GM/50ML 50 ML IVPB ONE (21:30)
--- NOTE | 2020-08-20 22:04 | NUR ---
BEDSIDE REPORT RECEIVED FROM HONORIO TOBIAS. ASSUMED CARE OF PT. PT SLEEPING. RESPIRATIONS EVEN AND UNLABORED. VITALS STABLE. FLUIDS AND ABX COMPLETE AT THIS TIME.
[2020-08-20 22:32] LABS: BARBITURATE SCREEN, URINE Negative (Negative); BENZODIAZEPINE SCREEN, URINE Negative (Negative); CANNABINOID SCREEN, URINE Positive (Negative); COCAINE SCREEN, URINE Negative (Negative); METHADONE SCREEN, URINE Negative (Negative); OPIATE SCREEN, URINE Negative (Negative)
[2020-08-20 22:41] LABS: AMPHETAMINE SCREEN, URINE Positive (Negative)
--- NOTE | 2020-08-20 23:25 | NUR ---
Patient/Caregiver given discharge instructions and they have confirmed that they understand the instructions. Patient ambulatory with steady gait.
[2020-08-20 23:26] VITALS: BP 110/64
== END 2020-08-20 23:28 | disposition home or self-care (01) ==
LOC: ED 21:34
DX: B34.9 Viral infection, unspecified (principal); F15.10 Other stimulant abuse, uncomplicated; R44.3 Hallucinations, unspecified; F17.200 Nicotine dependence, unspecified, uncomplicated; R00.0 Tachycardia, unspecified
CPT/HCPCS: 36415; 71045; 80048; 80307; 81003; 82040; 83605; 84145; 85025; 87040; 93005; 96361; 96365; 99285; J0696; J7030

== ENCOUNTER 2020-09-03 17:04 | Emergency (ER) | payer BC, MEDICAID ==
[~2020-09-03] VITALS: Ht 172.7 cm; Wt 68.5 kg
[2020-09-03 17:42] LABS: BASOPHILS % (AUTO) 1 % (0-1); EOSINOPHILS % (AUTO) 3 % (1-7); LYMPHOCYTES % (AUTO) 27 % (22-44); MEAN CORPUSCULAR HEMOGLOBIN 28.3 pg (27.5-34.5); MEAN CORPUSCULAR HGB CONC 33.1 g/dL (33.2-36.2); MEAN PLATELET VOLUME 7.3 fL (7.4-10.4); MONOCYTES % (AUTO) 10 % (2-9); NEUTROPHILS % (AUTO) 59 % (42-75); PLATELET COUNT 309 x10^3/uL (130-400); RED BLOOD COUNT 4.94 x10^6/uL (4.38-5.82); RED CELL DISTRIBUTION WIDTH 14.8 % (9.4-14.8)
[2020-09-03 17:45] LABS: MD NO
[2020-09-03 17:55] LABS: ALBUMIN 3.9 g/dL (3.4-5.0); CALCIUM 9.1 mg/dL (8.5-10.1)
[2020-09-03 17:59] LABS: ALANINE AMINOTRANSFERASE 68 U/L (12-78); ALKALINE PHOSPHATASE 94 U/L (45-117); CREATININE 1.06 mg/dL (0.7-1.3); TOTAL PROTEIN 7.9 g/dL (6.4-8.2)
[2020-09-03 18:04] LABS: ANION GAP 6 mmol/L (5-15); CHLORIDE 107 mmol/L (98-107)
[2020-09-03 18:05] LABS: SALICYLATE LEVEL < 1.7 mg/dL (2.8-20.0)
--- NOTE | 2020-09-03 20:45 | NUR ---
PT. TO ROOM FROM LOBBY AT THIS TIME.
--- NOTE | 2020-09-03 20:45 | NUR ---
pt called to room from lobby
--- NOTE | 2020-09-03 21:00 | NUR ---
PT. STATES HE NEEDS HELP WITH HIS MEDS FOR "SCHITZOPHRENIA AND PSYCHOSIS". C/O AUDITORY/VISUAL HALLUCINATIONS AND "MY MEDS AREN'T WORKING FOR ME." PT. DENIES ANY SI/HI JUST STATES "I CAN'T FOCUS". DR. NEGRETE IN TO EVAL PT. AND DISCUSS POC. PT. REQUESTING PUDDING.
[2020-09-03 21:04] VITALS: BP 113/79
== END 2020-09-03 21:16 | disposition home or self-care (01) ==
LOC: ED 20:45
DX: F25.9 Schizoaffective disorder, unspecified (principal); F17.210 Nicotine dependence, cigarettes, uncomplicated
CPT/HCPCS: 36415; 80053; 80307; 85025; 99284; 99406

== ENCOUNTER 2020-09-04 07:53 | Emergency (ER) | payer BC, MEDICAID ==
[~2020-09-04] VITALS: Ht 172.7 cm; Wt 65.1 kg
[2020-09-04 08:02] VITALS: BP 132/82
--- NOTE | 2020-09-04 08:19 | NUR ---
PT REFUSING TO ANSWER QUESTIONS FOR THIS RN, GIVING VAUGE ANSWERS. PROVIDER IN ROOM FOR ED EVAL.
--- NOTE | 2020-09-04 08:28 | NUR ---
THIS IS A 24 YO M W/ C/O RUNNY NOSE AND CONGESTION FOR 2 DAYS. PT REPORTS BEING SUICIAL, WILL NOT SPECIFY WHEN THOUGHTS BEGAIN AND PT IS NON COMPLIANT W/ MEDS. PT REPORTS DOES NOT HAVE A PLAN. DENIES AUDITORY/VISUAL HALLUCINATIONS. PT REQUESTING FOOD. PT CHANGED INTO GOWN, BELONGINGS TO SAFE KEEPING. URINE COLLECTED AND SENT TO LAB. SITTER OUTSIDE ROOM FOR SAFETY. RESP EVEN AND UNLABORED, RAFAEL.
--- NOTE | 2020-09-04 08:40 | NUR ---
RAD IN ROOM.
[2020-09-04 08:53] LABS: BASOPHILS % (AUTO) 0 % (0-1); EOSINOPHILS % (AUTO) 4 % (1-7); LYMPHOCYTES % (AUTO) 17 % (22-44); MD NO; MEAN CORPUSCULAR HEMOGLOBIN 28.3 pg (27.5-34.5); MEAN CORPUSCULAR HGB CONC 33.1 g/dL (33.2-36.2); MEAN PLATELET VOLUME 7.3 fL (7.4-10.4); MONOCYTES % (AUTO) 10 % (2-9); NEUTROPHILS % (AUTO) 69 % (42-75); PLATELET COUNT 297 x10^3/uL (130-400); RED BLOOD COUNT 5.14 x10^6/uL (4.38-5.82); RED CELL DISTRIBUTION WIDTH 14.8 % (9.4-14.8)
[2020-09-04 08:57] LABS: ALBUMIN 3.9 g/dL (3.4-5.0); ANION GAP 5 mmol/L (5-15); CALCIUM 8.8 mg/dL (8.5-10.1); CHLORIDE 108 mmol/L (98-107)
[2020-09-04 08:59] LABS: ALANINE AMINOTRANSFERASE 58 U/L (12-78); ALKALINE PHOSPHATASE 97 U/L (45-117); BILIRUBIN,TOTAL 0.7 mg/dL (0.2-1.0); CREATININE 0.83 mg/dL (0.7-1.3); TOTAL PROTEIN 7.9 g/dL (6.4-8.2)
--- NOTE | 2020-09-04 09:00 | NUR ---
PT PROVIDED W/ SAFETY DIET TRAY.
[2020-09-04 09:01] LABS: SALICYLATE LEVEL < 1.7 mg/dL (2.8-20.0)
[2020-09-04] MEDS ORDERED: LORazepam 1MG TABLET ONE (09:10)
[2020-09-04 09:19] LABS: AMPHETAMINE SCREEN, URINE Positive (Negative); BARBITURATE SCREEN, URINE Negative (Negative); BENZODIAZEPINE SCREEN, URINE Negative (Negative); CANNABINOID SCREEN, URINE Positive (Negative); COCAINE SCREEN, URINE Negative (Negative); METHADONE SCREEN, URINE Negative (Negative); OPIATE SCREEN, URINE Negative (Negative)
--- NOTE | 2020-09-04 09:27 | NUR ---
ALL TESTS RESULTED. PT IS UP FOR RECHECK AT THIS TIME.
[2020-09-04] MEDS ORDERED: LORazepam 1MG TABLET PO PRN (09:30)
--- NOTE | 2020-09-04 10:23 | NUR ---
PT RESTING ON GURNEY W/ SITTER OUTSIDE ROOM FOR SAFETY. RESP EVEN AND UNLABORED, RAFAEL.
--- NOTE | 2020-09-04 11:07 | NUR ---
PT SLEEPING ON GURNEY W/ SITTER OUTSIDE ROOM FOR SAFETY. RESP EVEN AND UNLABORED, NADN.
--- NOTE | 2020-09-04 12:41 | NUR ---
PT VERBALIZED UNDERSTANDING OF DC INSTRUCTIONS. BELONGINGS RETURNED TO PT. INSTRUCED TO GET DRESSED.
--- NOTE | 2020-09-04 12:53 | NUR ---
PT AMBULATORY W/ A STEADY GAIT TO DC DESK. RESP EVEN AND UNLABORED, NADN.
== END 2020-09-04 12:54 | disposition home or self-care (01) ==
LOC: ED 10:06
DX: F15.10 Other stimulant abuse, uncomplicated (principal); R06.02 Shortness of breath; R45.851 Suicidal ideations; F32.9 Major depressive disorder, single episode, unspecified; R05 Cough; J02.9 Acute pharyngitis, unspecified; R50.9 Fever, unspecified; F17.200 Nicotine dependence, unspecified, uncomplicated
CPT/HCPCS: 36415; 71045; 80053; 80307; 85025; 99284

== ENCOUNTER 2020-09-06 02:52 | Emergency (ER) | payer BC, MEDICAID ==
[~2020-09-06] VITALS: Ht 172.7 cm; Wt 65.6 kg
[2020-09-06 02:54] VITALS: BP 119/70
== END 2020-09-06 04:03 ==
LOC: ED 03:28
DX: F25.9 Schizoaffective disorder, unspecified (principal); F15.10 Other stimulant abuse, uncomplicated; Z72.9 Problem related to lifestyle, unspecified; Z91.14 Patient's other noncompliance with medication regimen
CPT/HCPCS: 99281

== ENCOUNTER 2020-09-07 12:45 | Emergency (ER) | payer BC, MEDICAID ==
[~2020-09-07] VITALS: Ht 172.7 cm; Wt 64.4 kg
[2020-09-07 12:55] VITALS: BP 124/76
--- NOTE | 2020-09-07 13:02 | NUR ---
THIS IS A 25 YEAR OLD MALE WHO STATES T STATES, "I GET REALLY BAD SUICIDAL THOUGHTS SOMETIMES. SOMETIMES I WANT TO GO TO THE TOP OF THE [facility] GARAGE AND JUMP OFF." ROOM SECURED, BELONGINGS IN LOCKER. SITTER AT DOOR
[2020-09-07] MEDS ORDERED: OLANZAPINE 5 MG TABLET PO ONE (14:00)
[2020-09-07] MEDS ORDERED: OLANZAPINE 5 MG TABLET ONE (14:08)
--- NOTE | 2020-09-07 14:32 | NUR ---
MEDICATED PATIENT PER MAR. ORDERED FOOD TRAY, PATIENT RESTING COMFORTABLY WITH SITTER OUTSIDE DOOR. ROOM REMAINS SECURE
--- NOTE | 2020-09-07 15:58 | NUR ---
Patient/Caregiver given discharge instructions and they have confirmed that they understand the instructions. Patient ambulatory with steady gait. 2 belongings bags given to patient.
== END 2020-09-07 16:01 | disposition home or self-care (01) ==
LOC: ED 15:25
DX: F15.129 Other stimulant abuse with intoxication, unspecified (principal); R45.851 Suicidal ideations
CPT/HCPCS: 99283

== ENCOUNTER 2020-09-11 03:52 | Emergency (ER) | payer BC, MEDICAID ==
[~2020-09-11] VITALS: Ht 172.7 cm; Wt 63.1 kg
[2020-09-11 04:03] VITALS: BP 112/75
--- NOTE | 2020-09-11 04:32 | NUR ---
seen and examined by Dr. Koenig. order for Discharge.
== END 2020-09-11 04:39 | disposition home or self-care (01) ==
LOC: ED 04:34
DX: R45.851 Suicidal ideations (principal); F20.9 Schizophrenia, unspecified; F17.210 Nicotine dependence, cigarettes, uncomplicated
CPT/HCPCS: 99284; 99406

== ENCOUNTER 2020-09-14 09:35 | Emergency (ER) | payer BC, MEDICAID ==
[~2020-09-14] VITALS: Ht 167.6 cm; Wt 62.5 kg
[2020-09-14 09:47] VITALS: BP 115/80
[2020-09-14 10:27] LABS: BASOPHILS % (AUTO) 0 % (0-1); EOSINOPHILS % (AUTO) 1 % (1-7); LYMPHOCYTES % (AUTO) 43 % (22-44); MEAN CORPUSCULAR HEMOGLOBIN 28.8 pg (27.5-34.5); MEAN CORPUSCULAR HGB CONC 33.8 g/dL (33.2-36.2); MEAN PLATELET VOLUME 7.3 fL (7.4-10.4); MONOCYTES % (AUTO) 7 % (2-9); NEUTROPHILS % (AUTO) 48 % (42-75); PLATELET COUNT 323 x10^3/uL (130-400); RED CELL DISTRIBUTION WIDTH 13.9 % (9.4-14.8)
[2020-09-14 10:30] LABS: MD NO
[2020-09-14 10:39] LABS: ALBUMIN 4.1 g/dL (3.4-5.0); ANION GAP 7 mmol/L (5-15); CALCIUM 9.4 mg/dL (8.5-10.1); CHLORIDE 108 mmol/L (98-107); CREATININE 0.92 mg/dL (0.7-1.3)
[2020-09-14 10:40] LABS: SALICYLATE LEVEL < 1.7 mg/dL (2.8-20.0)
== END 2020-09-14 10:58 | disposition home or self-care (01) ==
LOC: ED 10:11
DX: F20.9 Schizophrenia, unspecified (principal); F15.10 Other stimulant abuse, uncomplicated; R45.851 Suicidal ideations; F17.200 Nicotine dependence, unspecified, uncomplicated; Z91.14 Patient's other noncompliance with medication regimen
CPT/HCPCS: 36415; 80048; 80299; 80320; 80329; 82040; 85025; 99284; G0480

== ENCOUNTER 2020-09-19 19:50 | Emergency (ER) | payer BC, MEDICAID ==
[~2020-09-19] VITALS: Ht 172.7 cm; Wt 61.3 kg
--- NOTE | 2020-09-19 20:00 | NUR ---
PT ESCORTED TO CHAIR NEXT TO NURSE'S STATION. DIRECT OBSERVATION IN PLACE BY RN.
[2020-09-19 20:50] LABS: MEAN CORPUSCULAR HEMOGLOBIN 29.2 pg (27.5-34.5); MEAN CORPUSCULAR HGB CONC 33.7 g/dL (33.2-36.2); MEAN PLATELET VOLUME 7.5 fL (7.4-10.4); PLATELET COUNT 323 x10^3/uL (130-400); RED BLOOD COUNT 5.06 x10^6/uL (4.38-5.82)
[2020-09-19 20:53] LABS: ALBUMIN 4.1 g/dL (3.4-5.0); ANION GAP 8 mmol/L (5-15); CALCIUM 9.4 mg/dL (8.5-10.1); CHLORIDE 104 mmol/L (98-107); CREATININE 1.06 mg/dL (0.7-1.3)
[2020-09-19 20:54] LABS: SALICYLATE LEVEL < 1.7 mg/dL (2.8-20.0)
--- NOTE | 2020-09-19 20:56 | NUR ---
HI SITTING IN CHAIR IN VIEW OF NURSES STATION. LABS HAVE BEEN DRAWN AND PT HAS NO NEEDS AT THIS TIME.
[2020-09-19 21:36] VITALS: BP 121/69
--- NOTE | 2020-09-19 21:36 | NUR ---
Patient given discharge instructions and they have confirmed that they understand the instructions. Patient ambulatory with steady gait.
[2020-09-19 21:47] LABS: MD YES
[2020-09-19 21:52] LABS: BAND#(MANUAL) 0.06 x10^3/uL; BANDS%(MANUAL) 1 % (0-7); EOS#(MANUAL) 0.06 x10^3/uL (0.0-0.4); EOS% (MANUAL) 1 % (1-7); LYMPH#(MANUAL) 3.48 x10^3/uL (1-3.4); LYMPHS% (MANUAL) 60 % (22-44); MONOS#(MANUAL) 0.12 x10^3/uL (0.3-2.7); MONOS% (MANUAL) 2 % (2-9); REACTIVE LYMPHS # (MANUAL) 0.06 x10^3/uL (0-0); REACTIVE LYMPHS % (MANUAL) 1 % (0-0); SEG#(MANUAL) 2.03 x10^3/uL (1.8-6.8); SEGS% (MANUAL) 35 % (42-75)
[2020-09-19 21:53] LABS: <PLATELET ESTIMATE> ADEQUATE; <PLT MORPHOLOGY> NORMAL PLT MORPH; ANISOCYTOSIS 1+; HYPOCHROMIA 1+
== END 2020-09-19 21:37 | disposition home or self-care (01) ==
LOC: ED 21:10
DX: R45.851 Suicidal ideations (principal); R45.850 Homicidal ideations; F17.210 Nicotine dependence, cigarettes, uncomplicated; F20.9 Schizophrenia, unspecified; Z72.9 Problem related to lifestyle, unspecified
CPT/HCPCS: 36415; 80048; 80299; 80320; 80329; 82040; 84443; 85025; 99284; 99406; G0480

== ENCOUNTER 2020-10-07 19:12 | Emergency (ER) | payer BC, MEDICAID ==
[~2020-10-07] VITALS: Ht 172.7 cm; Wt 63.2 kg
[2020-10-07 19:20] VITALS: BP 136/74
[2020-10-07] MEDS ORDERED: ACETAMINOPHEN 325 MG TABLET PO ONE (20:00)
== END 2020-10-07 20:42 | disposition home or self-care (01) ==
LOC: ED 20:11
DX: F15.20 Other stimulant dependence, uncomplicated (principal); Z72.9 Problem related to lifestyle, unspecified; Z88.8 Allergy status to other drugs, medicaments and biological substances
CPT/HCPCS: 99281

== ENCOUNTER 2020-10-19 01:33 | Emergency (ER) | payer BC, MEDICAID ==
[~2020-10-19] VITALS: Ht 172.7 cm; Wt 62.0 kg
[2020-10-19 02:32] VITALS: BP 124/76
== END 2020-10-19 02:34 | disposition home or self-care (01) ==
LOC: ED 02:03
DX: F20.89 Other schizophrenia (principal); F32.0 Major depressive disorder, single episode, mild; F29 Unspecified psychosis not due to a substance or known physiological condition; F15.129 Other stimulant abuse with intoxication, unspecified; F17.200 Nicotine dependence, unspecified, uncomplicated; Z72.9 Problem related to lifestyle, unspecified
CPT/HCPCS: 99284

== ENCOUNTER 2020-10-23 07:24 | Emergency (ER) | payer BC, MEDICAID ==
[~2020-10-23] VITALS: Ht 172.7 cm; Wt 64.2 kg
[2020-10-23 07:26] VITALS: BP 146/86
--- NOTE | 2020-10-23 07:40 | NUR ---
"TRYING TO GET INTO TREATMENT PROGRAM FOR SCHIZOPHRENIA, SUICIDAL AND HOMICIDAL THOUGHTS" PT REPORTS A FEW YEARS OF THOUGHTS, NO HOME MEDS. PT REPORTS WAS HANGING OFF BUILDING A FEW DAYS AGO FOR SA. PLACED IN PSYCHIATRIC ROOM CHANGED INTO HOSPITAL GOWN. BELONGINGS BAGGED /LABELED/PLACED IN SECURED LOCKER UPDATED ON ESTIMATED POC SITTER WITHIN DIRECT LINE OF SIGHT
--- NOTE | 2020-10-23 07:45 | NUR ---
Poc clarified with provider- he placed patient on legal 1999. To perform full psychiatric precautions
[2020-10-23 08:27] LABS: ALBUMIN 3.9 g/dL (3.4-5.0); ANION GAP 5 mmol/L (5-15); CALCIUM 9.6 mg/dL (8.5-10.1); CHLORIDE 108 mmol/L (98-107); CREATININE 0.77 mg/dL (0.7-1.3)
[2020-10-23 08:29] LABS: SALICYLATE LEVEL < 1.7 mg/dL (2.8-20.0)
[2020-10-23 08:37] LABS: BASOPHILS % (AUTO) 0 % (0-1); EOSINOPHILS % (AUTO) 0 % (1-7); LYMPHOCYTES % (AUTO) 19 % (22-44); MEAN CORPUSCULAR HEMOGLOBIN 28.1 pg (27.5-34.5); MEAN CORPUSCULAR HGB CONC 33.4 g/dL (33.2-36.2); MEAN PLATELET VOLUME 7.6 fL (7.4-10.4); MONOCYTES % (AUTO) 7 % (2-9); NEUTROPHILS % (AUTO) 74 % (42-75); PLATELET COUNT 352 x10^3/uL (130-400); RED BLOOD COUNT 5.48 x10^6/uL (4.38-5.82); RED CELL DISTRIBUTION WIDTH 13.2 % (9.4-14.8)
--- NOTE | 2020-10-23 08:37 | NUR ---
CLEAN CATCH UA SENT
[2020-10-23 08:38] LABS: MD NO
--- NOTE | 2020-10-23 08:50 | NUR ---
No changes with reassessment (calm but appears to be responding to external stimuli, admits to hearing/seeing things) Sitter within direct line of site
[2020-10-23 09:00] LABS: AMPHETAMINE SCREEN, URINE Positive (Negative); BARBITURATE SCREEN, URINE Negative (Negative); BENZODIAZEPINE SCREEN, URINE Negative (Negative); CANNABINOID SCREEN, URINE Negative (Negative); COCAINE SCREEN, URINE Negative (Negative); METHADONE SCREEN, URINE Negative (Negative); OPIATE SCREEN, URINE Negative (Negative)
--- NOTE | 2020-10-23 09:55 | NUR ---
No changes with reassessment (calm but appears to be responding to external stimuli, admits to hearing/seeing things) Sitter within direct line of site Provided with food
--- NOTE | 2020-10-23 10:22 | NUR ---
psychiatry wood pole treater at bedside to assess
[2020-10-23] MEDS ORDERED: OLANZAPINE 10 MG TABLET PO SCH (10:30)
[2020-10-23] MEDS ORDERED: DIVALPROEX 500 MG TAB.ER.24H PO SCH (10:30)
--- NOTE | 2020-10-23 10:43 | NUR ---
Psychiatric low pressure firer to maintain legal 2000 provided with lunch Updated on estimated poc
[2020-10-23] MEDS ORDERED: OLANZAPINE 10 MG TABLET ONE (11:12)
[2020-10-23] MEDS ORDERED: DIVALPROEX 500 MG TAB.ER.24H ONE (11:12)
--- NOTE | 2020-10-23 11:12 | NUR ---
medicated per emar
--- NOTE | 2020-10-23 12:44 | NUR ---
WITH REASSESSMENT. PATIENT NOW FAST ASLEEP SITER WITHIN DIRECT LINE OF SIGHT
--- NOTE | 2020-10-23 13:06 | NUR ---
PT AMBULATED TO CHAIR WITHOUT ISSUE, PT PLACED IN FLOOR BED FOR PT COMFORT.
--- NOTE | 2020-10-23 14:43 | NUR ---
REPORT FROM IZABELLA. PT ON HOSPITAL BED. GIVEN SNACKS. SITTER PRESENT
--- NOTE | 2020-10-23 14:48 | NUR ---
PATIENT MOVED TO ROOM 3 JOVANNY BENITEZ REPORT TO JOSSELIN OLMEDO
--- NOTE | 2020-10-23 15:30 | NUR ---
PT GIVEN PUDDING. SITTER PRESENT
--- NOTE | 2020-10-23 16:17 | NUR ---
PT SLEEPING, SITTER PRESENT
--- NOTE | 2020-10-23 17:13 | NUR ---
RAPID COVID COMPLETE. SITTER PRESENT
--- NOTE | 2020-10-23 18:05 | NUR ---
GIVEN MEAL TRAY
--- NOTE | 2020-10-23 19:42 | NUR ---
PT TRANSFERED TO U AND TRANSPORTED WITH ER STAFF TO [facility]
== END 2020-10-23 19:43 ==
LOC: ED 07:45
DX: F33.9 Major depressive disorder, recurrent, unspecified (principal); F15.10 Other stimulant abuse, uncomplicated; R45.851 Suicidal ideations; F41.9 Anxiety disorder, unspecified; Z20.822 Contact with and (suspected) exposure to COVID-19
CPT/HCPCS: 36415; 80048; 80299; 80307; 80320; 80329; 82040; 84443; 85025; 87426; 99285; G0480

== ENCOUNTER 2020-10-23 17:42 | Inpatient (IN) | payer BC, MEDICAID ==
[~2020-10-23] VITALS: Ht 172.7 cm; Wt 64.2 kg
[2020-10-23] MEDS ORDERED: DOCUSATE 100 MG CAPSULE PO PRN (18:30)
[2020-10-23] MEDS ORDERED: ACETAMINOPHEN 325 MG TABLET PO PRN (18:30)
[2020-10-23] MEDS ORDERED: BISACODYL 10 MG SUPP PR PRN (18:30)
[2020-10-23] MEDS ORDERED: POLYETHYLENE GLYCOL 17 GM PACKET PO PRN (18:30)
[2020-10-23] MEDS ORDERED: ONDANSETRON ODT 4 MG PO PRN (18:30)
[2020-10-23 19:45] VITALS: BP 131/88
[2020-10-24 01:15] LABS: MICROSCOPIC NOT IND
[2020-10-24 02:05] LABS: CHOL/HDL RATIO 3.2; FREE T4 (FREE THYROXINE) 1.22 ng/dL (0.76-1.46)
[2020-10-24] MEDS: PROPRANOLOL 10 MG TABLET PO SCH (18:01)
[2020-10-24 19:15] VITALS: BP 113/74
[2020-10-24] MEDS: OLANZAPINE 10 MG TABLET PO SCH (20:06)
[2020-10-25] MEDS: PROPRANOLOL 10 MG TABLET PO SCH ×2 (05:23→17:35)
[2020-10-25 07:46] VITALS: BP 120/82
[2020-10-25] MEDS: OLANZAPINE 10 MG TABLET PO SCH (19:59)
[2020-10-25 20:36] VITALS: BP 111/75
[2020-10-26 05:55] VITALS: BP 119/74
[2020-10-26] MEDS: PROPRANOLOL 10 MG TABLET PO SCH ×2 (06:02→18:34)
[2020-10-26 07:21] VITALS: BP 99/64
[2020-10-26 19:32] VITALS: BP 122/74
[2020-10-26] MEDS: OLANZAPINE 10 MG TABLET PO SCH (19:59)
[2020-10-27 05:41] VITALS: BP 115/74
[2020-10-27] MEDS: PROPRANOLOL 10 MG TABLET PO SCH ×2 (05:45→17:06)
[2020-10-27 07:29] VITALS: BP 102/64
[2020-10-27 17:00] VITALS: BP 134/86
[2020-10-27 19:30] VITALS: BP 122/74
[2020-10-27] MEDS: OLANZAPINE 10 MG TABLET PO SCH (20:04)
[2020-10-27] MEDS: QUETIAPINE 25MG TABLET PO PRN (20:37)
[2020-10-28 05:50] VITALS: BP 113/57
[2020-10-28] MEDS: PROPRANOLOL 10 MG TABLET PO SCH ×2 (05:50→17:15)
[2020-10-28 07:34] VITALS: BP 109/70
[2020-10-28 19:35] VITALS: BP 104/52
[2020-10-28] MEDS: QUETIAPINE 25MG TABLET PO PRN (20:08)
[2020-10-28] MEDS: OLANZAPINE 10 MG TABLET PO SCH (20:08)
[2020-10-29] MEDS: PROPRANOLOL 10 MG TABLET PO SCH ×2 (05:55→17:21)
[2020-10-29 07:43] VITALS: BP 102/68
[2020-10-29] MEDS ORDERED: OLAN10TA9 PO (13:11)
[2020-10-29] MEDS ORDERED: PROP10TA16 PO (13:11)
[2020-10-29 19:36] VITALS: BP 146/82
[2020-10-29] MEDS: OLANZAPINE 10 MG TABLET PO SCH (20:06)
[2020-10-29] MEDS: QUETIAPINE 25MG TABLET PO PRN (20:06)
[2020-10-30] MEDS: PROPRANOLOL 10 MG TABLET PO SCH (05:50)
[2020-10-30 07:38] VITALS: BP 97/60
== END 2020-10-30 09:00 | disposition home or self-care (01) | DRG 885 ==
LOC: 3E 19:51
PROVIDERS: ADMIT Psychiatry & Neurology Psychosomatic Medicine; ATTEND Psychiatry & Neurology Psychosomatic Medicine
DX: F20.0 Paranoid schizophrenia (principal); R45.851 Suicidal ideations; F33.2 Major depressive disorder, recurrent severe without psychotic features; F15.20 Other stimulant dependence, uncomplicated; F11.20 Opioid dependence, uncomplicated; R45.850 Homicidal ideations; F17.210 Nicotine dependence, cigarettes, uncomplicated; F12.10 Cannabis abuse, uncomplicated; Z59.0 Homelessness; Z79.899 Other long term (current) drug therapy; Z91.19 Patient's noncompliance with other medical treatment and regimen; Z88.8 Allergy status to other drugs, medicaments and biological substances
CPT/HCPCS: 36415; 71045; 80061; 81003; 84439; 93005

== ENCOUNTER 2020-11-17 02:40 | Emergency (ER) | payer BC, MEDICAID ==
[~2020-11-17] VITALS: Ht 172.7 cm; Wt 61.6 kg
[~2020-11-17 02:40] MED LIST changes: -ALPR0.5T6 PO; +ALPR0.5T93 PO; +PROP10TA16 PO
[2020-11-17 02:49] VITALS: BP 132/92
== END 2020-11-17 02:59 | disposition home or self-care (01) ==
LOC: ED 02:50
DX: R45.851 Suicidal ideations (principal); Z72.9 Problem related to lifestyle, unspecified; Z91.14 Patient's other noncompliance with medication regimen
CPT/HCPCS: 99284